=== PATIENT | female | born 1980 | race Caucasian/White ===

== ENCOUNTER → 2017-03-13 | Outpatient (CLI) | payer BC ==
--- NOTE | 2017-03-13 09:00 | NM ---
EXAMINATION TYPE: NM hepatobiliary w EF DATE OF EXAM: 03/13/2017 8:56 AM COMPARISON: NONE HISTORY: Right upper quadrant pain TECHNIQUE: After the intravenous administration of 5.48 mCi Tc 99m Mebrofenin hepatobiliary scintigra phy is performed. Immediate images post injection. FINDINGS: There is satisfactory initial accumulation of tracer by the liver. The gallbladder is visualized wit hin 15 minutes. The small bowel activity is noted within 50 minutes. At one hour 8 ounces of oral e nsure plus is given to mimic CCK and gallbladder ejection fraction is calculated at 68 %, in the norm al range. Therefore there is no scintigraphic evidence of cystic or common bile duct obstruction to suggest acute cholecystitis or gallbladder dyskinesia. IMPRESSION: 1. No abnormality identified.
== END | disposition home or self-care (01) ==
LOC: RADNMMAIN 06:41
PROVIDERS: ATTEND Family Medicine
DX: R10.11 Right upper quadrant pain (principal)
CPT/HCPCS: 78226; A9537

== ENCOUNTER → 2017-04-07 | Outpatient (CLI) | payer BC ==
--- NOTE | 2017-04-07 14:36 | US ---
EXAMINATION TYPE: US thyroid st tissue head/neck DATE OF EXAM: 04/07/2017 COMPARISON: Thyroid FNA, 03/28/2016 CLINICAL HISTORY: MTN Thyroid Nodule E04.2. F/U from FNA, pt has no complaints at this time GLAND SIZE: Right Lobe: 4.3 x 1.2 x 1.5 cm Overall Parenchyma: homogenous Left Lobe: 3.8 x 1.2 x 1.1 cm Overall Parenchyma: homogeneous Isthmus Thickness: 0.2 cm NODULES RIGHT: # of nodules measured on right: 1 1. 1.0 X 0.5 x 1.0 cm hypoechoic mixed nodule at the lower pole with well-defined margins; This no dule is wider than tall and shows intranodular vascularity. Prior size: 1.0 x 0.5 x 0.8 cm LEFT: # of nodules measured on left: 1 1. 1.2 X 0.7 x 0.6 cm hypoechoic solid nodule at the mid pole with poorly defined margins; This no dule is wider than tall and shows intranodular vascularity. Prior size: 1.2 x 0.6 x 0.6 cm ISTHMUS: # of nodules measured in the isthmus: 0 Bilateral neck scanned, no evidence of lymphadenopathy. Stable nodules bilaterally IMPRESSION: 1. Stable bilateral thyroid nodules
== END | disposition home or self-care (01) ==
LOC: RADUSWWP 13:48
PROVIDERS: ATTEND Surgery
DX: E04.2 Nontoxic multinodular goiter (principal)
CPT/HCPCS: 76536

== ENCOUNTER 2017-04-21 11:25 | Day surgery (SDC) | payer BC ==
[2017-04-18 15:01] VITALS: BMI 26.4
[~2017-04-21 11:25] MED LIST: DEXAMETHASONE SOD PHOSPHATE 10 MG/ML 1 ML VIAL IV ONE; HEPARIN SODIUM,PORCINE 5,000 UNIT/ML 1 ML VIAL SQ ONE; LACTATED RINGERS 1,000 ML IV SCH; MIDAZOLAM 2 MG/2 ML VIAL IV PRN; ONDANSETRON 4 MG/2 ML VIAL IVP ONE; SCOPOLAMINE 1.5MG/72HR PATCH TRANSDERM ONE; ceFAZolin 2 GM in SODIUM CHLORIDE 0.9% 100 ML IVPB ONE
--- NOTE | 2017-04-21 13:14 | P.GSHP ---
History of Present Illness H&P Date: 04/21/17 Chief Complaint: Right upper quadrant pain Since 36-year-old female who presents today for laparoscopic cholecystectomy. Patient had chronic complaints of right quadrant pain. The pain is worsened when eating greasy foods. Her ultrasound shows prominent folds in the cystic duct. The stomach that she is having regular quadrant pain secondary to partial cystic duct obstruction. Patient presents today for laparoscopic cholecystectomy for chronic cholecystitis. Past Medical History Past Medical History: Fibromyalgia Additional Past Medical History / Comment(s): migraines, hx kidney stones History of Any Multi-Drug Resistant Organisms: None Reported Past Surgical History: Tubal Ligation Additional Past Surgical History / Comment(s): surgery left foot, raina bunionectomy, sinus surgery, rt ulnar shortening, lithotripsy Past Anesthesia/Blood Transfusion Reactions: Postoperative Nausea & Vomiting ( PONV) Additional Past Anesthesia/Blood Transfusion Reaction / Comment(s): "BP goes real low" Smoking Status: Former smoker - Past Family History Sister(s) Family Medical History: Cancer Additional Family Medical History / Comment(s): non-Hodgkins lymphoma Medications and Allergies Home Medications Medication Instructions Recorded Confirmed Type Cyanocobalamin [Vitamin B-12 1,000 mcg SQ Q14D 04/18/17 04/21/17 History Injection] DULoxetine HCL [Cymbalta] 60 mg PO QAM 04/18/17 04/21/17 History SUMAtriptan SUCCINATE [Imitrex] 100 mg PO DIRECTED PRN 04/18/17 04/21/17 History clonazePAM [KlonoPIN] 0.5 mg PO HS 04/18/17 04/21/17 History Allergies Allergy/AdvReac Type Severity Reaction Status Date / Time codeine phosphate Allergy Swelling Verified 04/18/17 14:51 [From Tylenol-Codeine #3] Surgical - Exam Vital Signs Temp Pulse Resp BP Pulse Ox 98.3 F 68 16 113/63 98 04/21/17 12:25 04/21/17 12:25 04/21/17 12:25 04/21/17 12:25 04/21/17 12:25 - General well developed, no distress - Eyes PERRL - ENT normal pinna - Neck no masses - Respiratory normal expansion - Cardiovascular Rhythm: regular - Abdomen Abdomen: soft, non tender Assessment and Plan Plan: Chronic cholecystitis. We'll perform laparoscopic cholecystectomy.
[2017-04-21] MEDS ORDERED: KETOROLAC 30 MG/ML 1 ML VIAL ONE (13:34)
[2017-04-21] MEDS ORDERED: ROCURONIUM BROMIDE 10 MG/ML 10 ML VIAL IV ONE (13:34)
[2017-04-21] MEDS ORDERED: PROPOFOL 10 MG/ML 20 ML VIAL IV ONE (13:34)
[2017-04-21] MEDS ORDERED: MIDAZOLAM 2 MG/2 ML VIAL ONE (13:34)
[2017-04-21] MEDS ORDERED: SUCCINYLCHOLINE CHLORIDE 100 MG/5 ML SYR IV ONE (13:34)
[2017-04-21] MEDS ORDERED: GLYCOPYRROLATE 0.2 MG/ML 2 ML VIAL ONE (13:34)
[2017-04-21] MEDS ORDERED: NEOSTIGMINE 1 MG/ML 10 ML VIAL ONE (13:34)
[2017-04-21] MEDS ORDERED: LIDOCAINE 1% INJ 10MG/ML (20 ML MDV) ONE (13:34)
[2017-04-21] MEDS ORDERED: fentaNYL (PF) 50 MCG/ML 2 ML AMP ONE (13:34)
[2017-04-21] MEDS ORDERED: BUPIVACAIN-EPI 0.5%-1:200,000 30 ML VIAL SQ ONE (14:00)
[2017-04-21] MEDS ORDERED: LACTATED RINGERS 1,000 ML IV ONE (14:07)
--- NOTE | 2017-04-21 14:12 | P.OP ---
Date of Procedure: 04/21/17 Preoperative Diagnosis: Cholecystitis Postoperative Diagnosis: Cholecystitis Procedure(s) Performed: Laparoscopic cholecystectomy Implants: Anesthesia: NORMA Surgeon: Gerald Villa Estimated Blood Loss (ml): 5 Pathology: other (Gallbladder) Condition: stable Disposition: PACU Indications for Procedure: Operative Findings: Description of Procedure: The patient was placed on the operating table. The patient received a general endotracheal tube anesthesia. The patients abdomen was prepped and draped in the usual sterile fashion. Through an infraumbilical stab incision, the fascia of the anterior abdominal wall was grasped with a pair of Kochers and then the Veress needle was placed in the peritoneal cavity. Position of the Veress needle was confirmed with positive drop test. The abdomen was then insufflated. After adequate insufflation, the 10 mm trocar was placed in the peritoneal cavity. Following this the laparoscope was placed in the peritoneal cavity. The patient was placed in the head-up, right side up position and then a 5 mm trocar was placed in the right lateral and right subcostal position under direct visualization. A 8 mm trocar was placed in the epigastric position. The gallbladder was grasped in the fundus and infundibulum. Traction on the gallbladder was placed in the lateral and the cephalad positions. The triangle of Calot was visualized.. The cystic duct was bluntly dissected until the union of the cystic duct and common bile duct was seen. The cystic duct was then divided and sealed with the Harmonic scissors. A PDS Endoloop was then placed throughout the cystic duct stump. The cystic artery divided and sealed with the Harmonic scissors. The gallbladder was then removed from the liver bed using Harmonic scissors. The gallbladder was then extracted through the epigastric port site. Operative field was checked for any bleeding spots and Harmonic scissors was used to coagulate the liver bed. The abdomen was irrigated. The trocars were removed. The skin was closed using interrupted 3-0 Vicryl suture. Dermabond dressing were applied. The patient tolerated the procedure well.
[2017-04-21 14:30] VITALS: TEMP 97.1
[2017-04-21] MEDS: HYDROmorphone 1 MG/ML 1 ML SYRINGE IVP PRN ×2 (14:40→14:57)
[2017-04-21] MEDS ORDERED: ONDANSETRON 4 MG/2 ML VIAL IVP ONE (14:40)
[2017-04-21] MEDS ORDERED: PROMETHAZINE INJ 25 MG/ML 1 ML VIAL IVPB ONE (15:00)
[2017-04-21] MEDS ORDERED: METOCLOPRAMIDE 5 MG/ML 2 ML VIAL IVP ONE (15:20)
[2017-04-21 16:11] VITALS: PULSE 102
[2017-04-21 16:57] VITALS: BP 104/66; RESP 16
== END 2017-04-21 17:26 | disposition home or self-care (01) ==
LOC: OR 11:25
PROVIDERS: ATTEND Surgery
DX: K81.1 Chronic cholecystitis (principal); M79.7 Fibromyalgia; Z87.891 Personal history of nicotine dependence; Z79.899 Other long term (current) drug therapy; Z88.5 Allergy status to narcotic agent
CPT/HCPCS: 81025; 88304; 47562; J2250; J1644; J1100; J2550; J2710; J2765; J0690; J2405; J2001; J3010; J1885; J1170; J0330; J2704

== ENCOUNTER → 2018-05-23 | Outpatient (CLI) | payer BC, OTHER ==
--- NOTE | 2018-05-24 10:12 | NM ---
EXAMINATION TYPE: NM thyroid image w uptake DATE OF EXAM: 05/24/2018 COMPARISON: Ultrasound 04/07/2017 HISTORY: Thyroid nodule TECHNIQUE: Thyroid iodine uptake is calculated and images performed after the oral administration of 293 uCi 1-123 Capsule. FINDINGS: There is normal distribution of activity throughout the gland. The 4 hour iodine uptake is calculated at 13.5% (normal range 8-14%). The 24-hour iodine uptake is calculated at 32% (normal ran ge 15-35%). IMPRESSION: 1. The nodules noted by ultrasound appear to be warm nodules and should be treated as cold nodules. 2. Normal 4 and 24 hour uptake. Note is made both values are at the upper limits of normal.
== END | disposition home or self-care (01) ==
LOC: RADNMMAIN 09:35
PROVIDERS: ATTEND Family Medicine
DX: E04.2 Nontoxic multinodular goiter (principal)
CPT/HCPCS: 78014; A9516

== ENCOUNTER → 2018-11-21 | Outpatient (CLI) | payer BC, OTHER | END | disposition home or self-care (01) | LOC: RADMRIMAIN 21:21 | PROVIDERS: ATTEND Family Medicine | DX: Z53.9 Procedure and treatment not carried out, unspecified reason (principal) ==

== ENCOUNTER → 2018-11-26 | Outpatient (CLI) | payer BC, OTHER ==
--- NOTE | 2018-11-27 08:11 | MR ---
EXAMINATION TYPE: MR femur/thigh LT wo con DATE OF EXAM: 11/26/2018 COMPARISON: None HISTORY: mass anterior aspect of distal femur. Palpable abnormality. TECHNIQUE: Standard multiplanar, multisequence MRI of the left femur/thigh was performed per [facility] protocol without intravenous contrast. FINDINGS: The patient's palpable abnormality over the distal anterior and lateral left femur and marked with a vitamin E capsule prior to imaging. No suspicious MRI finding or focal mass is seen deep to this palp able abnormality. Deep to the marker as the vastus lateralis muscle and subcutaneous tissue that is u nremarkable. Inferior to this there is the lateral patellar retinaculum and a very small amount of sandra int fluid, physiologic degree. Remainder the subcutaneous tissues are grossly unremarkable. Bone carlos ow signal is also unremarkable. Small patellar osteophytes are noted. No cortical irregularity is seen within the distal femur. Parti al chondral thickness defect of medial trochlea is noted with underlying focal T2 hyperintensity. Sunshine luation of the ligaments and tendons within the knees are nondiagnostic given the [id number]. IMPRESSION: No MRI mass to correspond to the patient's bowel abnormality. Myotendinous junction of the vastus lat eralis is seen at this location as well as the lateral patellar retinaculum just inferior to this. Scotty th these structures are unremarkable.
== END | disposition home or self-care (01) ==
LOC: RADMRIMAIN 13:45
PROVIDERS: ATTEND Family Medicine
DX: R22.42 Localized swelling, mass and lump, left lower limb (principal)

== ENCOUNTER 2019-07-06 14:24 | Emergency (ER) | payer OTHER, BC ==
[2019-07-06] MEDS ORDERED: fentaNYL (PF) 50 MCG/ML 2 ML AMP IVP PRN (14:25)
[2019-07-06] MEDS ORDERED: DIPH,PERTUS(ACELL)TETVAC-LF 0.5 ML VIAL IM ONE (14:35)
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
[2019-07-06 14:59] LABS: Basophils # (A) 0.1 k/uL (0-0.2); Basophils % (A) 1 %; Eosinophils # (A) 0.2 k/uL (0-0.7); Eosinophils % (A) 2 %; HCT 42.6 % (34.0-46.0); HGB 14.5 gm/dL (11.4-16.0); Lymphocytes % (A) 17 %; MCH 30.3 pg (25.0-35.0); MCHC 33.9 g/dL (31.0-37.0); MCV 89.5 fL (80.0-100.0); Mean Platelet Volume 7.5; Monocytes # (A) 0.4 k/uL (0-1.0); Monocytes % (A) 4 %; Neutrophils # (A) 8.5 k/uL (1.3-7.7); Neutrophils % (A) 75 %; Platelet Count 373 k/uL (150-450); RBC 4.77 m/uL (3.80-5.40); RDW 12.3 % (11.5-15.5); WBC 11.4 k/uL (3.8-10.6)
[2019-07-06 15:08] LABS: INR 0.9 (<1.2)
[2019-07-06 15:09] LABS: Partial Thromboplastin Time 22.1 sec (22.0-30.0); Prothrombin Time 9.6 sec (9.0-12.0)
[2019-07-06 15:11] LABS: ALT 21 U/L (9-52); AST 30 U/L (14-36); African American GFR (CKD) >90 (>60 ml/min/1.73 sqM); Albumin 4.6 g/dL (3.5-5.0); Alcohol <10 mg/dL; Alkaline Phosphatase 65 U/L (38-126); Amylase 52 U/L (30-110); Anion Gap 10 mmol/L; Blood Urea Nitrogen 14 mg/dL (7-17); Calcium 9.7 mg/dL (8.4-10.2); Carbon Dioxide 26 mmol/L (22-30); Chloride 104 mmol/L (98-107); Glucose 97 mg/dL (74-99); Potassium 4.8 mmol/L (3.5-5.1); Sodium 140 mmol/L (137-145); Total Bilirubin 0.6 mg/dL (0.2-1.3); Total Protein 8.5 g/dL (6.3-8.2)
[2019-07-06 15:21] LABS: Creatine Kinase 274 U/L (30-135)
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
[2019-07-06 15:33] LABS: Creatine Kinase MB 1.7 ng/mL (0.0-2.4); Troponin I <0.012 ng/mL (0.000-0.034)
[2019-07-06 15:51] LABS: Appearance,Urine Clear (Clear); Bilirubin,Urine Negative (Negative); Blood,Urine Negative (Negative); Color,Urine Yellow; Glucose,Urine (UA) Negative (Negative); Ketones,Urine Negative (Negative); Leukocyte Esterase,Urine Negative (Negative); Nitrite,Urine Negative (Negative); Protein,Urine Negative (Negative); Specific Gravity,Urine 1.024 (1.001-1.035); Urobilinogen,Urine <2.0 mg/dL (<2.0)
[2019-07-06 16:02] LABS: Amphetamine Screen,Urine Not Detected (NotDetected); Barbiturate Screen,Urine Not Detected (NotDetected); Benzodiazepines Screen,Urine Not Detected (NotDetected); Cocaine Screen,Urine Not Detected (NotDetected); Methadone Screen, Urine Not Detected (NotDetected); Opiate Screen,Urine Not Detected (NotDetected); Oxycodone Screen, Urine Not Detected (NotDetected); Phencyclidine Screen,Urine Not Detected (NotDetected); Tricyclic Antidepressant,Urine Not Detected (NotDetected); Urn Cannabinoid Scrn Not Detected (NotDetected)
== END 2019-07-06 15:45 | disposition other institution (70) ==
LOC: EC 14:24
DX: R29.818 Other symptoms and signs involving the nervous system (principal); S60.419A Abrasion of unspecified finger, initial encounter; S40.212A Abrasion of left shoulder, initial encounter; S40.211A Abrasion of right shoulder, initial encounter; S30.810A Abrasion of lower back and pelvis, initial encounter; Z23 Encounter for immunization; V29.40XA Motorcycle driver injured in collision with unspecified motor vehicles in traffic accident, initial encounter; Y92.410 Unspecified street and highway as the place of occurrence of the external cause
CPT/HCPCS: 36415; 86900; 86901; 80053; 82150; 82550; 82553; 83605; 83690; 84484; 85025; 85610; 85730; 86850; 81003; 81025; 80306; 80320; 72170; 73120; 71045; 90715; 99285; 96374; 90471; J3010

== ENCOUNTER → 2019-09-25 | Outpatient (CLI) | payer OTHER ==
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
== END | disposition home or self-care (01) ==
LOC: RADMRIMAIN 20:04
PROVIDERS: ATTEND Physician Assistant
DX: M25.561 Pain in right knee (principal)

== ENCOUNTER → 2021-09-21 | Outpatient (CLI) | payer OTHER ==
--- NOTE | 2021-09-21 14:45 | CT ---
EXAMINATION TYPE: CT abdomen pelvis w con DATE OF EXAM: 09/21/2021 HISTORY: RLQ abdominal and flank pain. CT DLP: 1568mGycm Automated Exposure Control for Dose Reduction was Utilized. CONTRAST: CT scan of the abdomen and pelvis is performed with oral and with IV Contrast, patient injected with 100ml mL of Isovue 300. COMPARISON: None FINDINGS: LUNG BASES: No significant abnormality is appreciated. LIVER/GB: Visualized liver is low dense consistent with diffuse fatty infiltration. Gallbladder not s een and presumed surgically absent. PANCREAS: No significant abnormality is seen. SPLEEN: No significant abnormality is seen. ADRENALS: No significant abnormality is seen. KIDNEYS: Symmetric cortical medullary uptake and excretion without hydronephrosis seen bilaterally. BOWEL: Oral contrast reaches level of the mid right colon. Satisfactory contrast opacification of ter shilpa ileum coronal image 35 which appears within normal limits. Normal-appearing appendix is seen as cending from the low-lying cecum. No suspicious small or large bowel dilatation. Mild to moderate wall thickening in the right colon. Mild wall thickening in the poorly distended tra nsverse colon extends into the left colon. Mild wall thickening with loss of haustration in the proxi mal to mid sigmoid colon. Latter finding may suggest underlying inflammatory bowel disease. Correlate clinically. UTERUS/ADNEXA: Heterogeneous Anteverted uterus. Ovaries are symmetric and normal in size on axial sumanth ge 73. LYMPH NODES: No greater than 1cm abdominal or pelvic lymph nodes are appreciated. OSSEOUS STRUCTURES: No significant abnormality is seen. OTHER: No significant additional abnormality is seen. IMPRESSION: No CT evidence for acute appendicitis. No renal stones or hydronephrosis seen bilaterally . Cannot exclude areas of mild uncomplicated acute colitis versus product of poor distention, correla te clinically.
== END | disposition home or self-care (01) ==
LOC: RADCTMAIN 12:14
PROVIDERS: ATTEND Family Medicine
DX: R10.13 Epigastric pain (principal)
CPT/HCPCS: 74177; Q9967

== ENCOUNTER → 2022-01-19 | Outpatient (CLI) | payer MEDICARE, OTHER ==
--- NOTE | 2022-01-19 08:57 | CT ---
EXAMINATION TYPE: CT chest wo/w con DATE OF EXAM: 01/19/2022 COMPARISON: CT dated 03/07/2013 HISTORY: Chest, Rt rib, and Rt shoulder pain CT DLP: 691.20 mGycm Automated exposure control for dose reduction was used. TECHNIQUE: CT scan of the chest is performed without and with IV Contrast, patient injected with 100 mL of Isovu e 300. FINDINGS: LUNGS: The lungs are grossly clear, there is no concerning parenchymal mass or nodule identified. T here is no pleural effusion or pneumothorax seen. The tracheobronchial tree is patent. MEDIASTINUM: Slightly dilated left atrium, please correlate with echocardiographic results. No perica rdial effusion. Patent major mediastinal arteries. The pulmonary trunk measures 2.2 cm. The ascending aorta measures 3.1 cm. No pathologically enlarged lymph nodes in the chest. OTHER: Bulky liver with suspected hepatic steatosis. Tiny hypodensity seen in the left hepatic lobe measuring 5 mm, likely representing a hepatic cyst unchanged since August 2021 CT abdomen. Previous cholecystectomy. Bulky spleen. Unremarkable visualized bones. IMPRESSION: No significant pulmonary or osseous abnormality identified. Incidental findings as descr ibed above. Further bone scan assessment can be considered if clinically required.
== END | disposition home or self-care (01) ==
LOC: RADCTMAIN 07:59
PROVIDERS: ATTEND Family Medicine
DX: R07.81 Pleurodynia (principal); M25.511 Pain in right shoulder; G57.31 Lesion of lateral popliteal nerve, right lower limb
CPT/HCPCS: 71270; Q9967

== ENCOUNTER → 2022-02-11 | Outpatient (CLI) | payer MEDICARE, OTHER ==
--- NOTE | 2022-02-11 23:14 | MR ---
EXAMINATION TYPE: MR thoracic spine wo con DATE OF EXAM: 02/11/2022 COMPARISON: None HISTORY: Mid back pain, right shoulder pain and arm pain. Multiplanar multiecho imaging of the thoracic spine without contrast. The thoracic vertebrae have fairly normal alignment. No significant disc space narrowing. No compress ion fracture. There is no thoracic paraspinal mass. Thoracic spinal cord shows normal signal pattern. No edema. No spinal stenosis. The posterior elements are intact. IMPRESSION: Negative MRI scan of the thoracic spine. No fracture. No disc herniation.
== END | disposition home or self-care (01) ==
LOC: RADMRIMAIN 18:58
PROVIDERS: ATTEND Physician Assistant
DX: M54.14 Radiculopathy, thoracic region (principal)
CPT/HCPCS: 72146

== ENCOUNTER → 2022-11-02 | Outpatient (CLI) | payer MEDICARE, OTHER ==
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
== END ==
LOC: SLEEP 13:58
PROVIDERS: ATTEND Internal Medicine
DX: G47.33 Obstructive sleep apnea (adult) (pediatric) (principal); M54.50 Low back pain, unspecified; K21.9 Gastro-esophageal reflux disease without esophagitis; Z90.49 Acquired absence of other specified parts of digestive tract; Z98.890 Other specified postprocedural states; M25.559 Pain in unspecified hip; V89.2XXA Person injured in unspecified motor-vehicle accident, traffic, initial encounter; Z88.5 Allergy status to narcotic agent; Z87.891 Personal history of nicotine dependence
CPT/HCPCS: 99211

== ENCOUNTER 2023-01-19 12:45 | Inpatient (IN) | payer MEDICARE, OTHER ==
[2023-01-19] MEDS ORDERED: SODIUM CHLORIDE 0.9% 1,000 ML IV STA (14:00)
--- NOTE | 2023-01-19 14:10 | ED ---
General Adult HPI - General Chief complaint: Headache Stated complaint: Headache, neck pain Time Seen by Provider: 01/19/23 13:31 Source: patient Mode of arrival: ambulatory Limitations: no limitations - History of Present Illness Initial comments: Dictation was produced using [employer] dictation software. please excuse any grammatical, word or spelling errors. Chief Complaint: 42-year-old female presents emergency Department with 1 week of headache History of Present Illness: 42-year-old female she has past medical history of chronic pain, neuropathy and right lower extremity disorder from more cephalexin in the past patient presents to the emergency room with mother and son. She is had approximately one week of headaches. She states that the headache feels like it's in her right occipital area and radiates to the top of her head bilaterally. States that she feels to her right lower face and right upper extremity. She was seen at primary care doctor as undergone several treatment attempts with no resolved. She was seen at [facility] yesterday where a computed tomography scan was performed on any unremarkable. She was discharged. She states that she was still symptomatic at the time of discharge. Patient st ates she was given multiple medications with no results. She called her primary care doctor who instructed her to come to the ER for a stat MRI. Patient reports that her scalp feels tender. States that her pain is reproduced with palpation. States that somebody did perform a occipital nerve block with no results. States that the only thing that helps her is lying flat. She reports having a history of migraines but her migraines usually not posterior. The ROS documented in this emergency department record has been reviewed and confirmed by me. Those systems with pertinent positive or negative responses have been documented in the HPI. All other systems are other negative and/or noncontributory. PHYSICAL EXAM: General Impression: Alert and oriented x3, acute distress secondary to pain HEENT: Normocephalic atraumatic, extra-ocular movements intact, pupils equal and reactive to light bilaterally, mucous membranes moist, exquisitely tender scalp, neck is supple Cardiovascular: Heart regular rate and rhythm Chest: Able to complete full sentences, no retractions, no tachypnea Abdomen: abdomen soft, non-tender, non-distended, no organomegaly Musculoskeletal: Pulses present and equal in all extremities, no peripheral edema Motor: no focal deficits noted Neurological: CN II-XII grossly intact, no focal motor or sensory deficits noted, negative Kernig's, negative Brudzinski's, negative Lhermitte's Skin: Intact with no visualized rashes Psych: Normal affect and mood ED course: 42-year-old female presents to the emergency department for severe headache. Vital signs upon arrival are within acceptable limits. Nursing notes and chart review was performed Was pt. sent in by a medical professional or institution (, LIO, HAND TRIMMER, urgent care, hospital, or fdc...) When possible be specific @ -No Did you speak to anyone other than the patient for history (EMS, parent, family, police, friend...)? What history was obtained from this source @ -No Did you review nursing and triage notes (agree or disagree)? Why? @ -I reviewed and agree with nursing and triage notes Were old charts reviewed (outside hosp., previous admission, EMS record, old EKG, old radiological studies, urgent care reports/EKG's, fdc records)? Report findings @ -Prior brain MRIs were reviewed. Prior sleep studies reviewed Differential Diagnosis (chest pain, altered mental status, abdominal pain women, abdominal pain men, vaginal bleeding, musculoskeletal, weakness, fever, dyspnea, syncope, headache, dizziness, GI bleed, back pain, seizure, CVA, palpatations, mental health)? @ -Differential Headache: Migraine, tension, cluster, carbon monoxide, central venous thrombosis, pension karma temporal arteritis, acute closure glaucoma, intercranial hemorrhage, mastoiditis, sinusitis, head injury, this is not meant to be an all-inclusive list. EKG interpreted by me (3pts min.). @ -None done X-rays interpreted by me (1pt min.). @ -None done CT interpreted by me (1pt min.). @ -CT angio head and neck non-acute, no aneurysms U/S interpreted by me (1pt. min.). @ -None done What testing was considered but not performed or refused? (CT, X-rays, U/S, labs)? Why? @ -None What meds were considered but not given or refused? Why? @ -Headache cocktail was considered however patient has already failed multiple treatments. She did not want opiates Did you discuss the management of the patient with other professionals (professionals i.e. Dr., PA, HAND TRIMMER, lab, RT, psych nurse, social work coordinator, family court counsellor, teacher, staff command and control officer, manager of case management)? Give summary @ -Case discussed with Dr. Fry for admission Was smoking cessation discussed for >3mins.? @ -No Was critical care preformed (if so, how long)? @ -No Were there social determinants of health that impacted care today? How? (Homelessness, low income, unemployed, alcoholism, drug addiction, transportation, low edu. Level, literacy, decrease access to med. care, retirement, rehab)? @ -History of Chronic pain Was there de-escalation of care discussed even if they declined (Discuss DNR or withdrawal of care, Hospice)? DNR status @ -No What co-morbidities impacted this encounter? (DM, HTN, Smoking, COPD, CAD, Cancer, CVA, ARF, Chemo, Hep., AIDS, mental health diagnosis, sleep apnea, morbid obesity)? @ -History of neuropathy and chronic pain Was patient admitted / discharged? Hospital course, mention meds given and route, prescriptions, significant lab abnormalities, going to OR and other pertinent info. @ --42 year-old female with status migrainosus. Laboratory evaluation was obtained. CBC and metabolic panels mostly negative except for mild hypomagnesemia 1.4. Disposition options were discussed with patient and she is agreeable for admission. Case discussed with Dr. Fry for admission. Neurology will be consulted Undiagnosed new problem with uncertain prognosis? @ -No Drug Therapy requiring intensive monitoring for toxicity (Heparin, Nitro, Insulin, Cardizem)? @ -No Were any procedures done? @ -No Diagnosis/symptom? Acute, or Chronic, or Acute on Chronic? Uncomplicated (without systemic symptoms) or Complicated (systemic symptoms)? @ -1. Acute status migrainosus Side effects of treatment? @ -No Exacerbation, Progression, or Severe Exacerbation? @ -No Poses a threat to life or bodily function? How? (Chest pain, [place], [place], pneumonia, PE, COPD, DKA, ARF, appy, cholecystitis, CVA, Diverticulitis, Homicidal, Suicidal, threat to staff... and all critical care pts) @ -yes - Related Data Home Medications Medication Instructions Recorded Confirmed Baclofen [Lioresal] 20 mg PO BID PRN 01/19/23 01/19/23 DULoxetine HCL [Cymbalta] 20 mg PO DAILY 01/19/23 01/19/23 HYDROcodone/APAP 5-325MG [[place] 1 tab PO BID 01/19/23 01/19/23 5-325] Previous Rx's Medication Instructions Recorded Sennosides-Docusate Sodium 2 each PO HS tab 01/25/23 [Senokot-S] polyethylene glycoL 3350 [Miralax] 17 gm PO DAILY packet 01/25/23 Allergies Allergy/AdvReac Type Severity Reaction Status Date / Time codeine phosphate Allergy Swelling Verified 01/19/23 17:05 [From Tylenol-Codeine #3] Review of Systems ROS Statement: Those systems with pertinent positive or pertinent negative responses have been documented in the HPI. ROS Other: All systems not noted in ROS Statement are negative. Past Medical History Past Medical History: No Reported History Additional Past Medical History / Comment(s): Migraines, neuropathy, History of Any Multi-Drug Resistant Organisms: None Reported Past Surgical History: Orthopedic Surgery, Tubal Ligation Additional Past Surgical History / Comment(s): carpal tunnel surgery left foot, raina bunionectomy, sinus surgery, ulnar shortening, Past Anesthesia/Blood Transfusion Reactions: Postoperative Nausea & Vomiting (PONV) Additional Past Anesthesia/Blood Transfusion Reaction / Comment(s): no previous blood transfusion Past Psychological History: Depression Smoking Status: Former smoker Past Alcohol Use History: Occasional Past Drug Use History: None Reported - Past Family History Sister(s) Family Medical History: Cancer Additional Family Medical History / Comment(s): non-Hodgkins lymphoma General Exam Limitations: no limitations Course Vital Signs 01/19/23 01/19/23 01/19/23 12:57 14:00 14:43 Temperature 97.4 F L Pulse Rate 86 88 88 Respiratory 18 16 16 Rate Blood Pressure 131/85 130/60 133/74 O2 Sat by Pulse 96 98 98 Oximetry 01/19/23 01/19/23 01/19/23 16:00 18:00 19:00 Temperature 98.8 F Pulse Rate 68 88 88 Respiratory 16 16 16 Rate Blood Pressure 134/68 144/88 141/88 O2 Sat by Pulse 98 98 98 Oximetry 01/19/23 01/19/23 20:49 21:02 Temperature Pulse Rate 80 86 Respiratory 20 16 Rate Blood Pressure 130/80 138/68 O2 Sat by Pulse 98 98 Oximetry Medical Decision Making - Lab Data Result diagrams: 01/19/23 14:00 01/19/23 14:00 Lab Results 01/19/23 01/19/23 01/19/23 Range/Units 14:00 14:00 14:17 WBC 13.9 H (3.8-10.6) k/uL RBC 4.30 (3.80-5.40) m/uL Hgb 14.2 (11.4-16.0) gm/dL Hct 38.8 (34.0-46.0) % MCV 90.3 (80.0-100.0) fL MCH 33.1 (25.0-35.0) pg MCHC 36.7 (31.0-37.0) g/dL RDW 12.6 (11.5-15.5) % Plt Count 335 (150-450) k/uL MPV 8.5 Neutrophils % 70 % Lymphocytes % 24 % Monocytes % 4 % Eosinophils % 0 % Basophils % 0 % Neutrophils # 9.7 H (1.3-7.7) k/uL Lymphocytes # 3.3 (1.0-4.8) k/uL Monocytes # 0.5 (0-1.0) k/uL Eosinophils # 0.0 (0-0.7) k/uL Basophils # 0.1 (0-0.2) k/uL Sodium 138 (137-145) mmol/L Potassium 4.0 (3.5-5.1) mmol/L Chloride 105 (98-107) mmol/L Carbon Dioxide 22 (22-30) mmol/L Anion Gap 11 mmol/L BUN 13 (7-17) mg/dL Creatinine 0.64 (0.52-1.04) mg/dL Est GFR (CKD-EPI)AfAm >90 (>60 ml/min/1.73 sqM) Est GFR (CKD-EPI)NonAf >90 (>60 ml/min/1.73 sqM) Glucose 91 (74-99) mg/dL Calcium 9.2 (8.4-10.2) mg/dL Magnesium 1.4 L (1.6-2.3) mg/dL HCG, Qual Not Detected Disposition Clinical Impression: Status migrainosus Disposition: ADMITTED IP TO THIS HOSP
[2023-01-19] MEDS: MAGNESIUM SULFATE-D5W PMX 1 GM in DEXTROSE/WATER 1 100ML.BAG IVPB SCH ×4 (14:16→19:49)
[2023-01-19 14:32] LABS: Basophils # (A) 0.1 k/uL (0-0.2); Basophils % (A) 0 %; Eosinophils % (A) 0 %; HCT 38.8 % (34.0-46.0); HGB 14.2 gm/dL (11.4-16.0); Lymphocytes # (A) 3.3 k/uL (1.0-4.8); Lymphocytes % (A) 24 %; MCH 33.1 pg (25.0-35.0); MCHC 36.7 g/dL (31.0-37.0); MCV 90.3 fL (80.0-100.0); Mean Platelet Volume 8.5; Monocytes # (A) 0.5 k/uL (0-1.0); Monocytes % (A) 4 %; Neutrophils # (A) 9.7 k/uL (1.3-7.7); Neutrophils % (A) 70 %; Platelet Count 335 k/uL (150-450); RDW 12.6 % (11.5-15.5); WBC 13.9 k/uL (3.8-10.6)
[2023-01-19 14:49] LABS: African American GFR (CKD) >90 (>60 ml/min/1.73 sqM); Anion Gap 11 mmol/L; Blood Urea Nitrogen 13 mg/dL (7-17); Calcium 9.2 mg/dL (8.4-10.2); Carbon Dioxide 22 mmol/L (22-30); Chloride 105 mmol/L (98-107); Glucose 91 mg/dL (74-99); Magnesium 1.4 mg/dL (1.6-2.3); Non-African American GFR(CKD) >90 (>60 ml/min/1.73 sqM); Sodium 138 mmol/L (137-145)
[2023-01-19] MEDS ORDERED: NALOXONE 0.4 MG/ML 1 ML VIAL IV PRN (14:56)
--- NOTE | 2023-01-19 15:59 | CT ---
EXAMINATION TYPE: CT angio head neck DATE OF EXAM: 01/19/2023 HISTORY: Headache x10 days. COMPARISON: None CT DLP: 1542.4 mGycm. Automated Exposure Control for Dose Reduction was Utilized. TECHNIQUE: CTA scan of the neck is performed with IV Contrast, patient injected with 65ml mL of I[place] ue 370, axial images are obtained, coronal and sagittal reformatted images are reviewed. Three-D bárbara nstructed images are created on an independent workstation and reviewed. Source images are reviewed. FINDINGS: CT brain: No abnormal hyperdensity is present to suggest an acute intracranial hemorrhage. No mass lesion is evident. No acute infarcts are evident. Ventricles and sulci are appropriate for the patient age. Paranasal sinuses and mastoid air cells within the [id number] are clear. Carotid/Vascular Structures: There is a three-vessel arch. Vertebral arteries are codominant. Common carotid arteries bifurcate into internal and external carotid arteries. Internal carotid arteries are patent to the skull base. Vertebral arteries are patent to the skull base. No suspicious focal narro wing is evident at the internal carotid artery origins. No significant plaquing is evident. Cervical of [place]: Vertebral basilar system appears normal. Posterior cerebral vasculature is unrema rkable. Internal carotid arteries bifurcate normally into A1 and M1 segments. The right A1 segment is slightly hypoplastic. A2 segments are normal. The anterior communicating artery is patent. Left Post erior communicating artery is patent. Right posterior communicating artery is patent. Other: Scattered lymphadenopathy within the neck. Enlarged lymphadenopathy is not identified. Cervica l spine appears unremarkable. IMPRESSION: 1. No flow-limiting stenosis bilateral carotid bifurcations. 2. Normal [place] of [place]. 3. CT brain as visualized appears normal. Follow-up MRI can be performed as clinically indicated NASCET criteria was used in interpretation of this exam?
[2023-01-19] MEDS: HYDROmorphone 0.5 MG/0.5 ML SYRINGE IVP PRN ×2 (16:35→19:48)
[2023-01-19] MEDS: ONDANSETRON 4 MG/2 ML VIAL IVP PRN (16:36)
[2023-01-19] MEDS: ACETAMINOPHEN TAB 325 MG TAB PO PRN (16:36)
[2023-01-19] MEDS: SODIUM CHLORIDE 0.9% 1,000 ML IV SCH (16:36)
[2023-01-19] MEDS ORDERED: BACLOFEN 10 MG TAB PO PRN (20:51)
[2023-01-19] MEDS ORDERED: METOCLOPRAMIDE 5 MG/ML 2 ML VIAL IVP PRN (20:52)
[2023-01-19] MEDS: HYDROcodone/APAP 5-325MG 1 EACH TAB PO PRN (23:25)
[2023-01-20] MEDS: SODIUM CHLORIDE 0.9% 1,000 ML IV SCH ×2 (05:24→20:25)
[2023-01-20] MEDS: ACETAMINOPHEN TAB 325 MG TAB PO PRN (08:53)
[2023-01-20] MEDS: DULoxetine HCL 20 MG CAPSULE.DR PO SCH (08:54)
[2023-01-20] MEDS ORDERED: MAGNESIUM SULFATE-D5W PMX 1 GM in DEXTROSE/WATER 1 100ML.BAG IVPB ONE (09:55)
[2023-01-20] MEDS ORDERED: diphenhydrAMINE 50 MG/ML 1 ML VIAL IVP STA (09:56)
[2023-01-20] MEDS ORDERED: ACETAMINOPHEN IV (For NPO) 1,000 MG in EMPTY BAG 1 BAG IVPB STA (09:56)
[2023-01-20] MEDS: GABAPENTIN 300 MG CAP PO SCH ×3 (11:32→21:10)
[2023-01-20] MEDS: polyethylene glycoL 3350 17 GM POWD.PACK PO SCH (11:33)
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
[2023-01-20] MEDS: methocarbamoL 500 MG TAB PO SCH ×2 (13:31→20:25)
--- NOTE | 2023-01-20 13:54 | P.HPIM ---
History of Present Illness H&P Date: 01/20/23 Chief Complaint: Ongoing headache 10 days This a 42-year-old female with past medical history of migraines, neuropathy, former nicotine dependence, depression, postop nausea and vomiting, obesity and multiple other medical issues presented to the ER with unrelieved ongoing h eadache of 10 days. Denies trauma,states headache initiated last Monday upon awakening. pointing to right occipital and right frontal areas. Reports electrical stabbing sensations, worsened with sitting, standing and light. Reports accompanying nausea. Denies fever or chills States she has had m igraines for all her life and they usually subside within 1 day. Last week, followed up with her PCP, received occipital injection, Toradol, baclofen with no relief. Also reports some numbness on the right trigeminal area. CTA reported negative. Afebrile, WBC 13.9, hemoglobin 14.2, platelets 335, chemistry panel unremarkable with the exception of magnesium 1.4, hCG not detected. Denies chest pain, palpitations or shortness of breath. Maintaining O2 sats in the high 90s on room air. Neurology consult in place. Review of Systems ROS Statement: Those systems with pertinent positive or pertinent negative responses have been documented in the HPI. ROS Other: All systems not noted in ROS Statement are negative. Past Medical History Past Medical History: No Reported History Additional Past Medical History / Comment(s): Migraines, neuropathy, History of Any Multi-Drug Resistant Organisms: None Reported Past Surgical History: Orthopedic Surgery, Tubal Ligation Additional Past Surgical History / Comment(s): carpal tunnel surgery left foot, raina bunionectomy, sinus surgery, ulnar shortening, Past Anesthesia/Blood Transfusion Reactions: Postoperative Nausea & Vomiting (PONV) Additional Past Anesthesia/Blood Transfusion Reaction / Comment(s): no previous blood transfusion Past Psychological History: Depression Smoking Status: Former smoker Past Alcohol Use History: Occasional Past Drug Use History: None Reported - Past Family History Sister(s) Family Medical History: Cancer Additional Family Medical History / Comment(s): non-Hodgkins lymphoma Medications and Allergies Home Medications Medication Instructions Recorded Confirmed Type Baclofen [Lioresal] 20 mg PO BID PRN 01/19/23 01/19/23 History DULoxetine HCL [Cymbalta] 20 mg PO DAILY 01/19/23 01/19/23 History HYDROcodone/APAP 5-325MG [[place] 1 tab PO BID 01/19/23 01/19/23 History 5-325] Allergies Allergy/AdvReac Type Severity Reaction Status Date / Time codeine phosphate Allergy Swelling Verified 01/19/23 17:05 [From Tylenol-Codeine #3] Physical Exam Vitals: Vital Signs Temp Pulse Pulse Resp BP BP Pulse Ox 01/20/23 12:30 98.3 F 85 16 122/80 98 01/20/23 07:35 98.4 F 90 16 121/76 96 01/20/23 02:26 98.1 F 81 14 109/70 95 01/19/23 21:35 98.5 F 70 14 148/92 97 01/19/23 21:02 86 16 138/68 98 01/19/23 20:49 80 20 130/80 98 01/19/23 19:00 88 16 141/88 98 01/19/23 18:00 98.8 F 88 16 144/88 98 01/19/23 16:00 68 16 134/68 98 01/19/23 14:43 88 16 133/74 98 01/19/23 14:00 88 16 130/60 98 Intake and Output 01/19/23 01/20/23 01/20/23 22:59 06:59 14:59 Other: # Voids 1 1 Weight 77.111 kg PHYSICAL EXAM: VITAL SIGNS: As above GENERAL: Lying in bed, eyes closed, no acute distress HEENT: Conjunctivae normal. eyes normal. NECK: No JVD. No thyroid enlargement. No LNs CARDIOVASCULAR: S1, S2 regular. No murmur RESPIRATION: Breath sounds diminished in the bases. No rhonchi or crackles. No bronchial breathing. ABDOMEN: Soft, nontender . No guarding. no masses palpable. No ascites, No hepatosplenomegaly.Bowel sounds heard. LEGS: No edema. no swelling PSYCHIATRY: Alert and oriented X3, mood and affect normal. NERVOUS SYSTEM: Cranial N 2-12 grossly normal. No focal deficits. Strength and sensation grossly intact. Skin: warm and dry, no rash Results CBC & Chem 7: 01/19/23 14:00 01/19/23 14:00 Labs: Abnormal Lab Results - Last 24 Hours (Table) 01/19/23 01/19/23 Range/Units 14:00 14:00 WBC 13.9 H (3.8-10.6) k/uL Neutrophils # 9.7 H (1.3-7.7) k/uL Magnesium 1.4 L (1.6-2.3) mg/dL Assessment and Plan Assessment: Migraine headache 10 days over the right occipital, right frontal region, some trigeminal numbness, failed outpatient treatment,Possibly complicated migraine, possible trigeminal neuralgia. Chronic migraines Morbid obesity, BMI 32.1 Depression Former nicotine dependence Plan: Continue on current medication regime ,monitoring and symptomatic treatment. Migraine cocktail, magnesium, Tylenol and Benadryl IV ordered. Neurontin added to med regimen. Neurology consult in place, recommendations pending. The impression and plan of care has been dictated as directed. : I performed a history and examination of this patient, discussed the same with the dictator. I agree with the dictator's note ,documented as a scribe. Any additional findings or plans will be noted.
[2023-01-20] MEDS: HYDROcodone/APAP 5-325MG 1 EACH TAB PO PRN (15:55)
[2023-01-20] MEDS: SENNOSIDES-DOCUSATE SODIUM 1 EACH TAB PO SCH (20:25)
[2023-01-21] MEDS: HYDROcodone/APAP 5-325MG 1 EACH TAB PO PRN ×3 (02:57→22:16)
[2023-01-21] MEDS: methocarbamoL 500 MG TAB PO SCH ×2 (08:57→20:13)
[2023-01-21] MEDS: polyethylene glycoL 3350 17 GM POWD.PACK PO SCH (08:57)
[2023-01-21] MEDS: DULoxetine HCL 20 MG CAPSULE.DR PO SCH (08:57)
[2023-01-21] MEDS: GABAPENTIN 300 MG CAP PO SCH ×3 (08:57→22:16)
[2023-01-21] MEDS ORDERED: CAFFEINE CITRATE 60 MG/3 ML VIAL IV STA (11:18)
[2023-01-21] MEDS ORDERED: SODIUM CHLORIDE 0.9% 500 ML 500 ML IV ONE (11:19)
[2023-01-21] MEDS ORDERED: CAFFEINE-SODIUM BENZOATE 500 MG in SODIUM CHLORIDE 0.9% 1,000 ML IVPB STA (11:45)
[2023-01-21] MEDS: SODIUM CHLORIDE 0.9% 1,000 ML IV SCH ×2 (12:32→20:13)
--- NOTE | 2023-01-21 12:44 | MR ---
EXAMINATION TYPE: MR brain/cspine wo/w DATE OF EXAM: 01/21/2023 COMPARISON: CT brain March 21, 2010 HISTORY: Headache and neck pain. TECHNIQUE: Multiplanar, multisequence images of the brain and brainstem and cervical spine are performed without and with IV contrast, utilizing 7 mL intravenous Gadavist . FINDINGS: Diffusion weighted images demonstrate no evidence of a recent infarct or other diffusion ab normality. There is no extra-axial fluid collection or significant white matter signal abnormality. The ventricular system and cisternal spaces are normal in size and appearance. The brain volume is age appropriate. Midline structures demonstrate normal morphology. The craniocervical junction appears within normal limits. Post contrast images demonstrate no abnormal enhancement. The dural venous sinuses appear pa tent. The visualized sinuses are clear and the globes are intact. IMPRESSION: Unremarkable study. Cervical spine: FINDINGS: There is slight dextroconvex scoliosis centered near the upper thoracic spine on coronal im ages Sagittal images of the cervical spine show the craniocervical junction to appear within normal l imits. The cervical and upper thoracic spinal cord is normal in course, caliber, and signal. Verteb ral alignment is satisfactory. The vertebral body and intravertebral disk heights are normal. The b one marrow signal intensity is within normal limits. No abnormal postcontrast enhancement is seen. Axial images show C2-C3 and C3-C4 level to appear within normal limits. Axial images at C4-C5 level showed tiny central disc protrusion minimally effacing the anterior theca l sac. Axial images at C5-C6 level show mild broad-based posterior disc protrusion mildly facing anterior th ecal sac and causing [id number] left-sided neural foraminal narrowing. Axial images at C6-C7 and C7-T1 levels appear within normal limits. IMPRESSION: Slight scoliotic curvature with mild degenerative changes in the mid cervical spine. No a bnormal enhancement is present.
--- NOTE | 2023-01-21 13:41 | P.PN ---
Subjective Progress Note Date: 01/21/23 The patient is seen at bedside and per the nurse she continues to prefer to lie of her side and not requesting any Dilaudid or Noco. She is also feeling headache worse with standing up. Patient denies of any trauma or procedure prior to this headache. Objective - Vital Signs Vital signs: Vital Signs Temp 98.8 F 01/21/23 12:39 Pulse 76 01/21/23 12:39 Resp 18 01/21/23 12:39 BP 151/82 01/21/23 12:39 Pulse Ox 95 01/21/23 12:39 FiO2 Intake & Output 01/20/23 01/21/23 01/21/23 18:59 06:59 18:59 Intake Total 1400 Balance 1400 Intake: Intake, IV Titration 900 Amount Sodium Chloride 0.9% 1, 900 000 ml @ 75 mls/hr IV . [id number] [facility] Rx#:[id number] Oral 500 Other: Voiding Method Bedside Commode Bedside Commode # Voids 1 3 1 - Exam GENERAL: The patient is lying in bed appears in acute distress. NEUROLOGICAL: Higher mental function: The patient is awake, alert, oriented to self, place and time. Patient is following commands. No aphasia and no neglect. Cranial nerves: The pupils are round, equal and reactive to light. Visual stevens are full to confrontation throughout. Extraocular movement is intact no nystagmus is noted. Facial sensation is normal to touch throughout. The facial strength is normal throughout. Tongue is midline and moved [id number] without any difficulty. No dysarthria is noted. Shoulder shrug is normal bilaterally. Motor: Gait was attempted but patient is able to stand but feeling very off and had to be aborted. The strength is limited because of cooperation but moving all extremities above gravity except old right foot drop. Normal tone and bulk. Cerebellum: Normal finger to nose bilaterally. Sensation: Sensation is normal to touch throughout. Some other workup during his hospital visit consisted of: Magnesium is 1.4. Urine hCG is not detected CTA of the head and neck was reported as no flow-limiting stenosis bilateral carotid bifurcation. Normal [place] of [place]. CT brain as visualized appears normal. Follow-up MRI can be performed as clinically indicated. - Labs CBC & Chem 7: 01/19/23 14:00 01/19/23 14:00 Labs: Abnormal Lab Results - Last 24 Hours (Table) 01/20/23 Range/Units 14:48 Magnesium 2.6 H (1.6-2.3) mg/dL Assessment and Plan Assessment: This is a 42-year-old woman with history of migraine feels for the past 10 days she is having headache gets worse and it's over the right occipital radiating to the right frontal region. Patient states her headache is more than a 10 and has been constant. Feels the headache is different than her regular migraine. Denies any trauma. Denies any procedures prior to this event. Spontaneous CSF leak (since has positional headache) vs right occipital headache. History of Migraine Plan: I ordered MRI of the brain and cervical spine with and without urgently. MR the brain is reported as unremarkable. MRI of the cervical spine was reported as slight scoliotic curvature with mild degenerative changes in the mid cervical spine. No abnormal enhancement is present. I also ordered as CT myelogram of the cervical thoracic lumbar to rule out any CSF leak stat appears according to the nurse will not be performed the this weekend likely to be done on Monday. I gave the patient bolus of 500 mL of normal saline with one time IV caffeine. Can consider right occipital nerve block if symptoms not improved. Recommend the patient to follow-up with a neurologist as outpatient for further management for migraine. Defer the rest of the medical medical to primary team Plan discussed with the patient and her nurse. Time with Patient: Less than 30
[2023-01-21] MEDS: SENNOSIDES-DOCUSATE SODIUM 1 EACH TAB PO SCH (20:13)
[2023-01-22] MEDS: HYDROcodone/APAP 5-325MG 1 EACH TAB PO PRN (04:09)
[2023-01-22] MEDS: methocarbamoL 500 MG TAB PO SCH ×2 (08:53→22:11)
[2023-01-22] MEDS: polyethylene glycoL 3350 17 GM POWD.PACK PO SCH (08:53)
[2023-01-22] MEDS: GABAPENTIN 300 MG CAP PO SCH ×3 (08:53→22:11)
[2023-01-22] MEDS: DULoxetine HCL 20 MG CAPSULE.DR PO SCH (08:53)
[2023-01-22] MEDS: HYDROmorphone 0.5 MG/0.5 ML SYRINGE IVP PRN (09:34)
[2023-01-22] MEDS: ONDANSETRON 4 MG/2 ML VIAL IVP PRN (10:33)
[2023-01-22] MEDS: SODIUM CHLORIDE 0.9% 1,000 ML IV SCH (12:07)
--- NOTE | 2023-01-22 12:19 | P.PN ---
Subjective Progress Note Date: 01/21/23 42-year-old female with past medical history of migraines, neuropathy, former nicotine dependence, depression, postop nausea and vomiting, obesity and multiple other medical issues presented to the ER with unrelieved ongoing headache of 10 days. Denies trauma,states headache initiated last Monday upon awakening. pointing to right occipital and right frontal areas. Reports electrical stabbing sensations, worsened with sitting, standing and light. Reports accompanying nausea. Denies fever or chills States she has had migraines for all her life and they usually subside within 1 day. Last week, followed up with her PCP, received occipital injection, Toradol, baclofen with no relief. Also reports some numbness on the right trigeminal area. CTA reported negative. Afebrile, WBC 13.9, hemoglobin 14.2, platelets 335, chemistry panel unremarkable with the exception of magnesium 1.4, hCG not detec kalli. Denies chest pain, palpitations or shortness of breath. Maintaining O2 sats in the high 90s on room air. Neurology consult in place. Objective - Vital Signs Vital signs: Vital Signs Temp 98.8 F 01/21/23 12:39 Pulse 76 01/21/23 12:39 Resp 18 01/21/23 12:39 BP 151/82 01/21/23 12:39 Pulse Ox 95 01/21/23 12:39 FiO2 Intake & Output 01/20/23 01/21/23 01/21/23 18:59 06:59 18:59 Intake Total 1400 Balance 1400 Intake: Intake, IV Titration 900 Amount Sodium Chloride 0.9% 1, 900 000 ml @ 75 mls/hr IV . [id number] [facility] Rx#:[id number] Oral 500 Other: Voiding Method Bedside Commode Bedside Commode # Voids 1 3 1 - Exam GENERAL: Lying in bed, eyes closed, no acute distress HEENT: Conjunctivae normal. eyes normal. NECK: No JVD. No thyroid enlargement. No LNs CARDIOVASCULAR: S1, S2 regular. No murmur RESPIRATION: Breath sounds diminished in the bases. No rhonchi or crackles. No bronchial breathing. ABDOMEN: Soft, nontender . No guarding. no masses palpable. No ascites, No hepatosplenomegaly.Bowel sounds heard. LEGS: No edema. no swelling PSYCHIATRY: Alert and oriented X3, mood and affect normal. NERVOUS SYSTEM: Cranial N 2-12 grossly normal. No focal deficits. Strength and sensation grossly intact. Skin: warm and dry, no rash - Labs CBC & Chem 7: 01/19/23 14:00 01/19/23 14:00 Labs: Abnormal Lab Results - Last 24 Hours (Table) 01/20/23 Range/Units 14:48 Magnesium 2.6 H (1.6-2.3) mg/dL Assessment and Plan Assessment: Migraine headache 10 days over the right occipital, right frontal region, some trigeminal numbness, failed outpatient treatment,Possibly complicated migraine, possible trigeminal neuralgia. Chronic migraines Morbid obesity, BMI 32.1 Depression Former nicotine dependence Plan: Continue on current medication regime ,monitoring and symptomatic treatment. Migraine cocktail, magnesium, Tylenol and Benadryl IV ordered. Ne urontin added to med regimen. Neurology consult in place, recommendations pending.
[2023-01-22] MEDS ORDERED: SODIUM CHLORIDE 0.9% 500 ML 500 ML IV ONE (14:28)
--- NOTE | 2023-01-22 14:30 | P.PN ---
Subjective Progress Note Date: 01/22/23 The patient is seen at bedside and does not feel her headache has improved. Objective - Vital Signs Vital signs: Vital Signs Temp 97.9 F 01/22/23 11:13 Pulse 69 01/22/23 11:13 Resp 18 01/22/23 11:13 BP 130/75 01/22/23 11:13 Pulse Ox 93 L 01/22/23 11:13 FiO2 Intake & Output 01/21/23 01/22/23 01/22/23 18:59 06:59 18:59 Intake Total 1500 900 Balance 1500 900 Intake: Intake, IV Titration 1500 900 Amount Caffeine-Sodium Benzoate 1000 500 mg In Sodium Chloride 0.9% 1,000 ml @ 1002 mls /hr IVPB ONCE STA Rx#: [id number] Sodium Chloride 0.9% 1, 900 000 ml @ 75 mls/hr IV . [id number] [facility] Rx#:[id number] Sodium Chloride 0.9% 500 500 ml 500 ml @ 999 mls/hr IV .Q31M ONE Rx#:[id number] Other: Voiding Method Bedside Commode Bedside Commode # Voids 5 1 1 - Exam GENERAL: The patient is lying in bed appears in acute distress. Sitting on left side of bed. NEUROLOGICAL: Higher mental function: The patient is awake, alert, oriented to self, place and time. Patient is following commands. No aphasia and no neglect. Cranial nerves: The pupils are round, equal and reactive to light. Visual stevens are full to confrontation throughout. Extraocular movement is intact no nystagmus is noted. Facial sensation is normal to touch throughout. The facial strength is normal throughout. Tongue is midline and moved [id number] without any difficulty. No dysarthria is noted. Shoulder shrug is normal bilaterally. Motor: Gait was attempted but patient is able to stand but feeling very off and had to be aborted. The strength is limited because of cooperation but moving all extremities above gravity except old right foot drop. Normal tone and bulk. Cerebellum: Normal finger to nose bilaterally. Sensation: Sensation is normal to touch throughout. Some other workup during his hospital visit consisted of: Magnesium is 1.4. Urine hCG is not detected CTA of the head and neck was reported as no flow-limiting stenosis bilateral carotid bifurcation. Normal [place]. CT brain as visualized appears normal. Follow-up MRI can be performed as clinically indicated. MRI the brain is reported as unremarkable. MRI of the cervical spine was reported as slight scoliotic curvature with mild degenerative changes in the mid cervical spine. No abnormal enhancement is present. - Labs CBC & Chem 7: 01/19/23 14:00 01/19/23 14:00 Assessment and Plan Assessment: This is a 42-year-old woman with history of migraine feels for the past 10 days she is having headache gets worse and it's over the right occipital radiating to the right frontal region. Patient states her headache is more than a 10 and has been constant. Feels the headache is different than her regular migraine. Denies any trauma. Denies any procedures prior to this event. Cephalgia due to possible Spontaneous CSF leak (since has positional headache) vs right occipital headache. MRI Brain and C-spine was not remarkable to her symptoms History of Migraine Plan: Pending CT myelogram of the cervical thoracic lumbar to rule out any CSF leak stat appears according to the nurse will not be performed the this weekend likely to be done on Monday. Ordered ESR and CRP. I will give her another dose of IV Caffeine and another bolus of IV 0.9 saline 500cc. Patient is on Dilaudid PRN. Is on Gababentin 300mg 1 tab tid, Robaxin. Can consider right occipital nerve block if symptoms not improved. Recommend the patient to follow-up with a neurologist as outpatient for further management for migraine. Defer the rest of the medical medical to primary team Plan discussed with the patient and her nurse. Dr. Peña will start neurology service tomorrow A.M. Time with Patient: Less than 30
[2023-01-22] MEDS ORDERED: CAFFEINE-SODIUM BENZOATE 500 MG in SODIUM CHLORIDE 0.9% 1,000 ML IVPB ONE (15:00)
--- NOTE | 2023-01-22 17:09 | P.PN ---
Subjective Progress Note Date: 01/22/23 Principal diagnosis: Cephalgia due to possible Spontaneous CSF leak (since has positional headache) vs right occipital headache. 42-year-old female with past medical history of migraines, neuropathy, former nicotine dependence, depression, postop nausea and vomiting, obesity and multiple other medical issues presented to the ER with unrelieved ongoing headache of 10 days. Denies trauma,states headache initiated last Monday upon awakening. pointing to right occipital and right frontal areas. Reports electrical stabbing sensations, worsened with sitting, standing and light. Reports accompanying nausea. Denies fever or chills States she has had migraines for all her life and they usually subside within 1 day. Last week, followed up with her PCP, received occipital injection, Toradol, baclofen with no relief. Also reports some numbness on the right trigeminal area. CTA reported negative. Afebrile, WBC 13.9, hemoglobin 14.2, platelets 335, chemistry panel unremarkable with the exception of magnesium 1.4, hCG not detected. Denies chest pain, palpitations or shortness of breath. Maintaining O2 sats in the high 90s on room air. Neurology consult in place. 01/22/2023 Patient is seen and evaluated in room with family at bedside; continues to complain of headache --Neurology on board and recommending IV caffeine and IV fluid bolus with normal saline 500 mL; patient will continue with IV Dilaudid when necessary along with Neurontin 300 mg 3 times a day; continue with Robaxin - CT myelogram of cervical, thoracic and lumbar spine is ordered and pending - Possible plan for occipital nerve block if no improvement in symptoms Objective - Vital Signs Vital signs: Vital Signs Temp 97.9 F 01/22/23 11:13 Pulse 69 01/22/23 11:13 Resp 18 01/22/23 11:13 BP 130/75 01/22/23 11:13 Pulse Ox 93 L 01/22/23 11:13 FiO2 Intake & Output 01/21/23 01/22/23 01/22/23 18:59 06:59 18:59 Intake Total 1500 900 Balance 1500 900 Intake: Intake, IV Titration 1500 900 Amount Caffeine-Sodium Benzoate 1000 500 mg In Sodium Chloride 0.9% 1,000 ml @ 1002 mls /hr IVPB ONCE STA Rx#: [id number] Sodium Chloride 0.9% 1, 900 000 ml @ 75 mls/hr IV . [id number] [facility] Rx#:[id number] Sodium Chloride 0.9% 500 500 ml 500 ml @ 999 mls/hr IV .Q31M ONE Rx#:[id number] Other: Voiding Method Bedside Commode Bedside Commode # Voids 5 1 1 - Exam GENERAL: Lying in bed, eyes closed, no acute distress HEENT: Conjunctivae normal. eyes normal. NECK: No JVD. No thyroid enlargement. No LNs CARDIOVASCULAR: S1, S2 regular. No murmur RESPIRATION: Breath sounds diminished in the bases. No rhonchi or crackles. No bronchial breathing. ABDOMEN: Soft, nontender . No guarding. no masses palpable. No ascites, No hepatosplenomegaly.Bowel sounds heard. LEGS: No edema. no swelling PSYCHIATRY: Alert and oriented X3, mood and affect normal. NERVOUS SYSTEM: Cranial N 2-12 grossly normal. No focal deficits. Strength and sensation grossly intact. Skin: warm and dry, no rash - Labs CBC & Chem 7: 01/19/23 14:00 01/19/23 14:00 Assessment and Plan Assessment: Migraine headache 10 days over the right occipital, right frontal region, some trigeminal numbness, failed outpatient treatment,Possibly complicated migraine, possible trigeminal neuralgia. Chronic migraines Morbid obesity, BMI 32.1 Depression Former nicotine dependence Plan: Continue on current medication regime ,monitoring and symptomatic t reatment. Migraine cocktail, magnesium, Tylenol and Benadryl IV ordered. Neurontin added to med regimen. Neurology consult in place, recommendations pending.
[2023-01-22] MEDS: SENNOSIDES-DOCUSATE SODIUM 1 EACH TAB PO SCH (22:11)
[2023-01-23] MEDS: SODIUM CHLORIDE 0.9% 1,000 ML IV SCH ×2 (03:20→23:56)
[2023-01-23] MEDS: HYDROcodone/APAP 5-325MG 1 EACH TAB PO PRN (04:27)
[2023-01-23] MEDS: methocarbamoL 500 MG TAB PO SCH ×2 (09:10→21:09)
[2023-01-23] MEDS: GABAPENTIN 300 MG CAP PO SCH ×3 (09:10→21:09)
[2023-01-23] MEDS: polyethylene glycoL 3350 17 GM POWD.PACK PO SCH (09:10)
[2023-01-23] MEDS: DULoxetine HCL 20 MG CAPSULE.DR PO SCH (09:10)
--- NOTE | 2023-01-23 14:14 | P.PN ---
Subjective Progress Note Date: 01/23/23 Chief Complaint: Ongoing headache 10 days This a 42-year-old female with past medical history of migraines, neuropathy, former nicotine dependence, depression, postop nausea and vomiting, obesity and multiple other medical issues presented to the ER with unrelieved ongoing headache of 10 days. Denies trauma,states headache initiated last Monday upon awakening. pointing to right occipital and right frontal areas. Reports electrical stabbing sensations, worsened with sitting, standing and light. Reports accompanying nausea. Denies fever or chills States she has had migrain es for all her life and they usually subside within 1 day. Last week, followed up with her PCP, received occipital injection, Toradol, baclofen with no relief. Also reports some numbness on the right trigeminal area. CTA reported negative. Afebrile, WBC 13.9, hemoglobin 14.2, platelets 335, chemistry panel unremarkable with the exception of magnesium 1.4, hCG not detected. Denies chest pain, palpitations or shortness of breath. Maintaining O2 sats in the high 90s on room air. Neurology consult in place. 01/23/2023 continues on Dilaudid PRN, Neurontin and Robaxin . Received IV caffeine, additional IV fluids with reported minimal improvement yesterday. Denies numbness or tingling. Positive facial sensation to touch. States pain is ongoing at the "top of her neck and to the right side top of head". Neuro workup currently reporting unremarkable;MRI the brain is reported as unremar kable. MRI of the cervical spine was reported as slight scoliotic curvature with mild degenerative changes in the mid cervical spine. No abnormal enhancement is present. ESR 12 ,C-reactive protein less than 0.5. CT myelogram of the cervical thoracic lumbar, ruling out CSF leak pending. Objective - Vital Signs Vital signs: Vital Signs Temp 97.8 F 01/23/23 06:48 Pulse 74 01/23/23 06:48 Resp 16 01/23/23 06:48 BP 112/75 01/23/23 06:48 Pulse Ox 97 01/23/23 06:48 FiO2 Intake & Output 01/22/23 01/23/23 01/23/23 18:59 06:59 18:59 Intake Total 1500 Output Total 0 Balance 1500 0 Intake: Intake, IV Titration 1500 Amount Caffeine-Sodium Benzoate 1000 500 mg In Sodium Chloride 0.9% 1,000 ml @ 1002 mls /hr IVPB ONCE ONE Rx#: [id number] Sodium Chloride 0.9% 500 500 ml 500 ml @ 999 mls/hr IV .Q31M ONE Rx#:[id number] Output: Stool 0 Other: Voiding Method Bedside Commode Bedside Commode # Voids 1 1 - Exam PHYSICAL EXAM: VITAL SIGNS: As above GENERAL: Lying in bed, eyes closed, no acute distress. Conversing fluently and appropriately. HEENT: Conjunctivae normal. eyes normal. NECK: Supple, No JVD. CARDIOVASCULAR: S1, S2 regular. No murmur RESPIRATION: Breath sounds diminished in the bases. No rhonchi or crackles. No bronchial breathing. ABDOMEN: Soft, nontender . No guarding. no masses palpable. +Bowel sounds. LEGS: No edema. no swelling PSYCHIATRY: Alert and oriented X3, mood and affect normal. NERVOUS SYSTEM: Cranial N 2-12 grossly normal. Skin: warm and dry, no rash - Labs CBC & Chem 7: 01/19/23 14:00 01/19/23 14:00 Assessment and Plan Assessment: Migraine headache 10 days over the right occipital, right frontal region, some trigeminal numbness, failed outpatient treatment,Possibly complicated migraine, possible trigeminal neuralgia. Ruling out spontaneous CSF leak. Chronic migraines Morbid obesity, BMI 32.1 Depression Former nicotine dependence Plan: Continue on current medication regime ,monitoring and symptomatic t reatment. CT myelogram of the cervical thoracic lumbar pending. Neurology discussing possible right occipital nerve block. The impression and plan of care has been dictated as directed. : I performed a history and examination of this patient, discussed the same with the dictator. I agree with the dictator's note ,documented as a scribe. Any additional findings or plans will be noted.
--- NOTE | 2023-01-23 16:24 | FL ---
EXAMINATION TYPE: FL myelogram 2 or more regions DATE OF EXAM: 01/23/2023 COMPARISON: NONE HISTORY: 42-year-old female persistent postural headache, assess for CSF leak Informed consent was obtained and all the patient's questions were answered. The L3-L4 level was loc alized under fluoroscopy. Standard sterile technique was utilized as well as appropriate local anest hesia 1% Lidocaine. A 22-gauge 5 inch spinal needle was introduced into the thecal sac under fluorosc opic guidance . Clear CSF was visualized at the needle hub. Approximately 6.5 mL of clear, colorless cerebral spinal fluid was obtained and sent for requested l aboratory analysis. Subsequently, 10 mL's of Isovue M-300 was injected. The patient tolerated the procedure well and lef t the department in stable condition. The table was manipulated to promote cephalad passage of contrast. CT myelography is to follow. The patient tolerated the procedure well and was sent for CT and satisfactory condition. The estimated blood loss was minimal. The patient's condition was unchanged following the procedure. Total fluoroscopy time: 66 seconds. Total images: 7. Total DAP: 3.0. IMPRESSION: Successful myelography at the lumbar spine level for entire spine CT to follow.
--- NOTE | 2023-01-23 16:35 | CT ---
EXAMINATION TYPE: CT CervThorLumbar spine w con DATE OF EXAM: 01/23/2023 COMPARISON: None HISTORY: 42-year-old female with persistent headache, assess for CSF leak, Post myelogram TECHNIQUE: Contiguous axial scanning of the cervical, thoracic, and lumbar spine performed with IV Co ntrast, patient injected with 10cc mL of Isovue M300 into the intrathecal space coronal/sagittal bárbara nstructions performed. CT DLP: 1778 mGycm Automated exposure control for dose reduction was used. FINDINGS: INCIDENTAL: * Asymmetric soft tissue along the right palatine tonsils and right vallecular space probably some t onsillar hypertrophy. Consider for the patient for direct inspection to exclude mucosal lesion here. * Prominent strandy atelectasis or scarring in the visualized mid to lower lungs. Heart borderline i n size without pericardial effusion. * Small hiatal hernia. * Underlying hepatic steatosis. Hepatomegaly at 20.6 cm. Within the spine, Vertebral body heights are preserved and alignment is maintained. No large focal disc herniation or spinal canal stenosis is seen. No significant neural foraminal sten osis. Conus medullaris is at the T12-L1 level. No significant neuroforaminal stenosis is identified. There is some inadvertent spillage of the intrathecal contrast into the basal cisterns. There is no abnormal extension of contrast either side along the length of the thecal sac to indicate a dural tear/CSF leak by CT myelogram. No prevertebral paravertebral soft tissue abnormality or abnormal fluid collection is identified. IMPRESSION: NO DIAGNOSTIC EVIDENCE OF CSF LEAK BY CT MYELOGRAM. INCIDENTAL FINDINGS OUTLINED ABOVE.
[2023-01-23 18:23] LABS: Glucose,CSF 59 mg/dL (40-70); Total Protein,CSF 33 mg/dL (12-60)
[2023-01-23 19:39] LABS: Appearance,CSF Clear; CSF Tube Number 3; CSF Tube Volume 2.5; Nucleated Cells, CSF 0 u/L (0-5); Red Blood Cell,CSF 35 u/L (0-10)
[2023-01-23 19:42] LABS: Red Blood Cell, CSF Fresh 100 %
[2023-01-23] MEDS: SENNOSIDES-DOCUSATE SODIUM 1 EACH TAB PO SCH (21:09)
[2023-01-24] MEDS: SODIUM CHLORIDE 0.9% 1,000 ML IV SCH ×2 (03:13→15:45)
[2023-01-24] MEDS: HYDROcodone/APAP 5-325MG 1 EACH TAB PO PRN ×2 (04:06→15:44)
--- NOTE | 2023-01-24 09:45 | P.PN ---
Subjective Progress Note Date: 01/23/23 Patient was initially seen by Dr. Arcadio Pierce. Please refer to his consultation note, impression and plan. Patient is a 42-year-old female with headache, but different than migraine and felt left occipital but worse standing up. Dr. Pierce was concerned about CSF leak versus occipital neuralgia. He did recommend CT myelogram. Also patient was given caffeine. Today's the first day I'm seeing the patient. Patient already had undergone CT myelogram earlier today as recommended by Dr. Pierce, which was negative for any CSF leak. Patient was seen for a follow-up. Patient is laying in the bed, with a washcloth on her forehead. Patient's was also present. Patient states her headache is greater than 10/10 at this time. It appears like ice cream headache like the brain freeze in her head. When she lays on her back, it is worse. Objective - Vital Signs Vital signs: Vital Signs Temp 98.0 F 01/23/23 16:05 Pulse 87 01/23/23 17:52 Resp 16 01/23/23 16:05 BP 123/88 01/23/23 17:52 Pulse Ox 97 01/23/23 17:52 FiO2 Intake & Output 01/23/23 01/23/23 01/24/23 06:59 18:59 06:59 Intake Total 750 Output Total 0 1 Balance 0 749 Intake: Intake, IV Titration 750 Amount Sodium Chloride 0.9% 1, 750 000 ml @ 75 mls/hr IV . [id number] [facility] Rx#:[id number] Output: Stool 0 1 Other: Voiding Method Bedside Commode Bedside Commode # Voids 1 1 - Exam Patient complaining of significant headache, otherwise detailed examination deferred. Mentation appears normal. - Labs CBC & Chem 7: 01/19/23 14:00 01/19/23 14:00 Labs: Abnormal Lab Results - Last 24 Hours (Table) 01/23/23 Range/Units 14:45 CSF RBC 35 H (0-10) u/L Assessment and Plan Assessment: This is a 42-year-old woman with history of migraine feels for the past 10 days she is having headache gets worse and it's over the right occipital radiating to the right frontal region. Patient states her headache is more than a 10 and has been constant. Feels the headache is different than her regular migraine. Denies any trauma. Denies any procedures prior to this event. Cephalgia: Dr. Pierce has felt it was possible Spontaneous CSF leak (since has positional headache) vs right occipital headache. MRI Brain and C-spine was not remarkable to her symptoms. CSF leak ruled out with CT myelogram. No evidence of meningitis. History of Migraine Plan: Patient underwent CT myelogram today. Opening pressure was not checked. CT myelogram negative for any CSF leak. CSF shows 0 nucleated cells, 35 RBC, glucose 59, total proteins 33, all normal. Meningitis ruled out. Await MS panel and viral cultures. ESR 12, CRP <0.5. CTA of the head and neck was reported as no flow-limiting stenosis bilateral carotid bifurcation. Normal [place]. MRI the brain is reported as unremarkable. I personally reviewed MRI, and is normal. No evidence of Chiari malformation. No abnormal contrast enhancement. Visualized paranasal sinuses are clear. MRI of the cervical spine was reported as slight scoliotic curvature with mild degenerative changes in the mid cervical spine. No abnormal enhancement is present. I personally reviewed MRI, agree with the findings. We will observe overnight, if no improvement, will consider occipital nerve block.
[2023-01-24] MEDS ORDERED: ACETAMINOPHEN IV (For NPO) 1,000 MG in EMPTY BAG 1 BAG IVPB STA (09:59)
[2023-01-24] MEDS ORDERED: METOCLOPRAMIDE 5 MG/ML 2 ML VIAL IVP STA (10:00)
[2023-01-24] MEDS ORDERED: LORazepam 2 MG/ML INJ IV STA (10:00)
[2023-01-24] MEDS ORDERED: MAGNESIUM SULFATE-D5W PMX 1 GM in DEXTROSE/WATER 1 100ML.BAG IVPB ONE (10:30)
[2023-01-24] MEDS: GABAPENTIN 300 MG CAP PO SCH (12:05)
[2023-01-24] MEDS: methocarbamoL 500 MG TAB PO SCH ×2 (12:05→21:04)
[2023-01-24] MEDS: DULoxetine HCL 20 MG CAPSULE.DR PO SCH (12:05)
[2023-01-24] MEDS: polyethylene glycoL 3350 17 GM POWD.PACK PO SCH (12:05)
[2023-01-24 12:16] LABS: IgG - CSF 2.4 mg/dL (0.0 - 3.4)
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
[2023-01-24] MEDS ORDERED: methylPREDNISolone ACETATE 80 MG/ML 1 ML VIAL ONE (13:37)
[2023-01-24] MEDS ORDERED: ROPIVACAINE 5 MG/ML 20 ML AMPULE ONE (13:37)
--- NOTE | 2023-01-24 13:47 | P.PCN ---
Date of Procedure: 01/24/23 Procedure(s) Performed: Preoperative diagnoses= 1- Right Greater occipital neuralgia. 2-myofascial pain syndrome right-sided cervical paraspinal muscles Postoperative diagnoses= 1- Right greater occipital neuralgia. 2-myofascial pain syndrome right-sided cervical paraspinal muscles Procedure= Right Greater occipital nerve block. 2-trigger point injection right side cervical paraspinal muscles total of 4 trigger point injected Anesthesia=none . Estimated blood loss=minimal. Procedure indication= the patient had a history of severe chronic neck pain ,and headache, diagnosed with occipital neuralgia exam was positive for severe tenderness over the occipital nerve on the right side , and also examination was positive for multiple trigger point identified on the right side cervical paraspinal muscles she will be a good candidate occipital nerve block, andger points injections and trigpatient failed conservative management Procedure description= the patient was seen and identified in the preoperative holding area, risks and benefits and alternative of the procedure and possible complications discussed with the patient, and he agreed with the preceding, patient signed the consent, an IV was started, and vital signs were monitored and were stable throughout the procedure, patient was placed in the sitting position or table and the neck area was prepped and draped with a sterile fashion, vital signs were closely monitored during the procedure, 25-gauge needle advanced 1 inch lateral to the occipital protuberance on the right side, at the location of the right occipital nerve , then after negative aspiration for heme and CSF and there was no paresthesia during the injection, 6 ml of Robivacaine 0.5% and 40 mg of Depo-Medrol injected after negative aspiration, the needle removed. Then after that the right side cervical paraspinal muscle trigger point injections done in a similar technique each of the trigger point injected with mixture of ropivacaine 0.5% at the medial mixed with 40 mg of Depo-Medrol, a total ML of the mixture was injected into each trigger point using 25-gauge needle, injections done after negative aspiration under was no paresthesia during the injection, a total of 4 trigger point injected on the right side cervical paraspinal muscles patient tolerated the procedure well without any complications The patient returned to supine position after the back was cleaned and a Band- Aid applied, the patient transported to recovery room in stable condition and he was monitored for 30 minutes before he was discharged home and then patient was reexamined before going home and patient was discharged in stable condition and patient will follow up with the pain clinic in a few weeks.
--- NOTE | 2023-01-24 14:25 | P.PN ---
Subjective Progress Note Date: 01/24/23 Chief Complaint: Ongoing headache 10 days This a 42-year-old female with past medical history of migraines, neuropathy, former nicotine dependence, depression, postop nausea and vomiting, obesity and multiple other medical issues presented to the ER with unrelieved ongoing headache of 10 days. Denies trauma,states headache initiated last Monday upon awakening. pointing to right occipital and right frontal areas. Reports electrical stabbing sensations, worsened with sitting, standing and light. Reports accompanying nausea. Denies fever or chills States she has had migrain es for all her life and they usually subside within 1 day. Last week, followed up with her PCP, received occipital injection, Toradol, baclofen with no relief. Also reports some numbness on the right trigeminal area. CTA reported negative. Afebrile, WBC 13.9, hemoglobin 14.2, platelets 335, chemistry panel unremarkable with the exception of magnesium 1.4, hCG not detected. Denies chest pain, palpitations or shortness of breath. Maintaining O2 sats in the high 90s on room air. Neurology consult in place. 01/23/2023 continues on Dilaudid PRN, Neurontin and Robaxin . Received IV caffeine, additional IV fluids with reported minimal improvement yesterday. Denies numbness or tingling. Positive facial sensation to touch. States pain is ongoing at the "top of her neck and to the right side top of head". Neuro workup currently reporting unremarkable;MRI the brain is reported as unremar kable. MRI of the cervical spine was reported as slight scoliotic curvature with mild degenerative changes in the mid cervical spine. No abnormal enhancement is present. ESR 12 ,C-reactive protein less than 0.5. CT myelogram of the cervical thoracic lumbar, ruling out CSF leak pending. 01/24/2023 reports headache unchanged, rating it 10 out of 10. currently sitting up on bedside commode with eyes closed. Reports nausea, no emesis and states she can open her eyes, but the light is bothersome. CT myelogram reported negative for CSF leak. Neurology expressing concern for possible occipital neuralgia, pain management service consulted. Objective - Vital Signs Vital signs: Vital Signs Temp 97.9 F 01/24/23 13:32 Pulse 90 01/24/23 13:32 Resp 15 01/24/23 13:32 BP 113/78 01/24/23 13:32 Pulse Ox 96 01/24/23 13:32 FiO2 Intake & Output 01/23/23 01/24/23 01/24/23 18:59 06:59 18:59 Intake Total 750 900 Output Total 1 1 Balance 749 899 Intake: Intake, IV Titration 750 900 Amount Sodium Chloride 0.9% 1, 750 900 000 ml @ 75 mls/hr IV . [id number] [facility] Rx#:[id number] Output: Stool 1 1 Other: Voiding Method Bedside Commode Bedside Commode Bedside Commode # Voids 1 1 - Exam PHYSICAL EXAM: VITAL SIGNS: As above GENERAL: Alert and oriented 3, Sitting up on bedside commode, head hung down with chin down towards chest, eyes closed, no acute distress. Conversing fluently/appropriately. HEENT: Conjunctivae normal. eyes normal. NECK: Supple, No JVD. CARDIOVASCULAR: S1, S2 regular. No murmur RESPIRATION: Unlabored ,Breath sounds diminished in the bases. ABDOMEN: Soft, nontender . No guarding. no masses palpable. +Bowel sounds. LEGS: No edema. no swelling NERVOUS SYSTEM: Cranial N 2-12 grossly normal. Skin: warm and dry, no rash. - Labs CBC & Chem 7: 01/19/23 14:00 01/19/23 14:00 Labs: Abnormal Lab Results - Last 24 Hours (Table) 01/23/23 Range/Units 14:45 CSF RBC 35 H (0-10) u/L Microbiology - Last 24 Hours (Table) 01/23/23 14:45 CSF Gram Stain - Preliminary Cerebral Spinal Fluid CSF Culture - Preliminary Assessment and Plan Assessment: Migraine headache 10 days over the right occipital, right frontal region, some trigeminal numbness, failed outpatient treatment,Possibly complicated migraine, possible trigeminal neuralgia. Possible occipital neuralgia. Chronic migraines Morbid obesity, BMI 32.1 Depression Former nicotine dependence Plan: Continue on current medication regime ,monitoring and symptomatic treatment. Migraine cocktail. Neurology discussing possible occipital neuralgia- right occipital nerve block, pain management services consulted. Discharge planning in progress for tomorrow pending final DC recommendations and clearance per neurology, pain management. The impression and plan of care has been dictated as directed. : I performed a history and examination of this patient, discussed the same with the dictator. I agree with the dictator's note ,documented as a scribe. Any additional findings or plans will be noted.
[2023-01-24] MEDS: GABAPENTIN 400 MG CAP PO SCH ×2 (15:44→21:04)
[2023-01-24] MEDS: SENNOSIDES-DOCUSATE SODIUM 1 EACH TAB PO SCH (21:04)
[2023-01-25] MEDS: SODIUM CHLORIDE 0.9% 1,000 ML IV SCH ×2 (04:59→19:52)
[2023-01-25] MEDS: HYDROcodone/APAP 5-325MG 1 EACH TAB PO PRN (06:55)
[2023-01-25 07:48] VITALS: RESP 16
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
[2023-01-25] MEDS: polyethylene glycoL 3350 17 GM POWD.PACK PO SCH (10:54)
[2023-01-25] MEDS: GABAPENTIN 400 MG CAP PO SCH ×3 (10:54→21:02)
[2023-01-25] MEDS: methocarbamoL 500 MG TAB PO SCH ×2 (10:54→21:02)
[2023-01-25] MEDS: DULoxetine HCL 20 MG CAPSULE.DR PO SCH (10:54)
[2023-01-25] MEDS: BUTALB/APAP/CAFF 50-325-40MG TAB PO PRN ×2 (15:01→21:02)
--- NOTE | 2023-01-25 15:46 | P.PN ---
Subjective Progress Note Date: 01/25/23 Chief Complaint: Ongoing headache 10 days This a 42-year-old female with past medical history of migraines, neuropathy, former nicotine dependence, depression, postop nausea and vomiting, obesity and multiple other medical issues presented to the ER with unrelieved ongoing headache of 10 days. Denies trauma,states headache initiated last Monday upon awakening. pointing to right occipital and right frontal areas. Reports electrical stabbing sensations, worsened with sitting, standing and light. Reports accompanying nausea. Denies fever or chills States she has had migrain es for all her life and they usually subside within 1 day. Last week, followed up with her PCP, received occipital injection, Toradol, baclofen with no relief. Also reports some numbness on the right trigeminal area. CTA reported negative. Afebrile, WBC 13.9, hemoglobin 14.2, platelets 335, chemistry panel unremarkable with the exception of magnesium 1.4, hCG not detected. Denies chest pain, palpitations or shortness of breath. Maintaining O2 sats in the high 90s on room air. Neurology consult in place. 01/23/2023 continues on Dilaudid PRN, Neurontin and Robaxin . Received IV caffeine, additional IV fluids with reported minimal improvement yesterday. Denies numbness or tingling. Positive facial sensation to touch. States pain is ongoing at the "top of her neck and to the right side top of head". Neuro workup currently reporting unremarkable;MRI the brain is reported as unremar kable. MRI of the cervical spine was reported as slight scoliotic curvature with mild degenerative changes in the mid cervical spine. No abnormal enhancement is present. ESR 12 ,C-reactive protein less than 0.5. CT myelogram of the cervical thoracic lumbar, ruling out CSF leak pending. 01/24/2023 reports headache unchanged, rating it 10 out of 10. currently sitting up on bedside commode with eyes closed. Reports nausea, no emesis and states she can open her eyes, but the light is bothersome. CT myelogram reported negative for CSF leak. Neurology expressing concern for possible occipital neuralgia, pain management service consulted. 01/25/2023 evaluated by pain management services yesterday, right greater occipital nerve block. Reports some improvement in the occipital area but continues to have significant unchanged pain at the top of the head. Right bicipital tenderness to palpation-cannot lay on her back/right side. Reports that she can barely sit or stand as it intensifies the pain in addition to causing dizziness. Positive nausea, no emesis. Discussed with neurology, possible CSF leak from myelogram; recommending epidural blood patch. Objective - Vital Signs Vital signs: Vital Signs Temp 98.6 F 01/25/23 14:00 Pulse 75 01/25/23 14:00 Resp 16 01/25/23 14:00 BP 100/67 01/25/23 14:00 Pulse Ox 96 01/25/23 14:00 FiO2 Intake & Output 01/24/23 01/25/23 01/25/23 18:59 06:59 18:59 Intake Total 1490 1000 Output Total 1 Balance 1490 999 Intake: Intake, IV Titration 900 1000 Amount Sodium Chloride 0.9% 1, 900 1000 000 ml @ 75 mls/hr IV . [id number] [facility] Rx#:[id number] Oral 590 Output: Stool 1 Other: Voiding Method Bedside Commode Bedside Commode Toilet # Voids 2 3 - Exam PHYSICAL EXAM: VITAL SIGNS: As above GENERAL: Alert and oriented 3, lying on left side, eyes closed, no acute distress. HEENT: Conjunctivae normal. eyes normal. NECK: Supple, No JVD. CARDIOVASCULAR: S1, S2 regular. No murmur RESPIRATION: Unlabored ,Breath sounds diminished in the bases. ABDOMEN: Soft, nontender . No guarding. no masses palpable. +Bowel sounds. LEGS: No edema. no swelling NERVOUS SYSTEM: Cranial N 2-12 grossly normal. Skin: warm and dry, no rash. - Labs CBC & Chem 7: 01/19/23 14:00 01/19/23 14:00 Labs: Microbiology - Last 24 Hours (Table) 01/23/23 14:45 CSF Gram Stain - Preliminary Cerebral Spinal Fluid CSF Culture - Preliminary Assessment and Plan Assessment: headache 10 days over the right occipital, right frontal region, some trigeminal numbness, failed outpatient treatment,Possible right occipital neuralgia, status post right occipital nerve block. Chronic migraines CSF leak ruled out with CT myelogram Morbid obesity, BMI 32.1 Depression Former nicotine dependence Plan: Continue on current medication regime ,monitoring and symptomatic treatment. Neurology recommending epidural blood patch pain. Neurology notifying pain management services. The impression and plan of care has been dictated as directed. : I performed a history and examination of this patient, discussed the same with the dictator. I agree with the dictator's note ,documented as a scribe. Any additional findings or plans will be noted.
--- NOTE | 2023-01-25 16:09 | P.PN ---
Progress Note - Text Progress Note Date: 01/25/23 The patient was seen again today on request from neurology. The patient still complains of 8-10 headache however the pain location has changed from the right occipital area to the top of her head as she states. The patient has mild photophobia and nausea however she has not been throwing up. The patient has history of migraine headache with the last episode taking placed 5 years ago and usually it lasts for one day only. The patient has been having this headache for 2 weeks now with failure to respond to many medications . The occipital nerve block which she had yesterday helped her occipital headache however the headache now is located on top of her head as stated above. She denies any precipitating events for this headache with no recent surgeries or new medications. She has been free of other neurologic symptoms. The patient used to get Imitrex for her migraine headaches but she has not received it recently. She has side effects to Lyrica . Currently she takes Neurontin and was just started on Fioricet. At this point I will defer treatment to neurology. I do not think that the patient will benefit from any more occipital nerve blocks.
[2023-01-25] MEDS: SENNOSIDES-DOCUSATE SODIUM 1 EACH TAB PO SCH (21:02)
[2023-01-26] MEDS: BUTALB/APAP/CAFF 50-325-40MG TAB PO PRN ×4 (04:10→18:09)
[2023-01-26] MEDS: SODIUM CHLORIDE 0.9% 1,000 ML IV SCH ×2 (04:10→17:25)
[2023-01-26] MEDS: ONDANSETRON 4 MG/2 ML VIAL IVP PRN (04:18)
[2023-01-26] MEDS: methocarbamoL 500 MG TAB PO SCH (08:26)
[2023-01-26] MEDS: GABAPENTIN 400 MG CAP PO SCH (08:26)
[2023-01-26] MEDS: DULoxetine HCL 20 MG CAPSULE.DR PO SCH (08:26)
[2023-01-26] MEDS: polyethylene glycoL 3350 17 GM POWD.PACK PO SCH (08:28)
[2023-01-26 10:12] LABS: Appearance,Urine Clear (Clear); Bilirubin,Urine Negative (Negative); Blood,Urine Moderate (Negative); Color,Urine Light Yellow; Glucose,Urine (UA) Negative (Negative); Ketones,Urine Negative (Negative); Leukocyte Esterase,Urine Trace (Negative); Mucus,Urine Rare /hpf; Nitrite,Urine Negative (Negative); Protein,Urine Negative (Negative); RBC,Urine 5 /hpf (0-5); Specific Gravity,Urine 1.007 (1.001-1.035); Squamous Epithelial Cell,Urine <1 /hpf (0-4); Urobilinogen,Urine <2.0 mg/dL (<2.0); WBC,Urine 3 /hpf (0-5)
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
[2023-01-26 11:36] VITALS: BMI 32.1
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
--- NOTE | 2023-01-26 12:34 | P.PN ---
Subjective Progress Note Date: 01/26/23 Chief Complaint: Ongoing headache 10 days This a 42-year-old female with past medical history of migraines, neuropathy, former nicotine dependence, depression, postop nausea and vomiting, obesity and multiple other medical issues presented to the ER with unrelieved ongoing headache of 10 days. Denies trauma,states headache initiated last Monday upon awakening. pointing to right occipital and right frontal areas. Reports electrical stabbing sensations, worsened with sitting, standing and light. Reports accompanying nausea. Denies fever or chills States she has had migrain es for all her life and they usually subside within 1 day. Last week, followed up with her PCP, received occipital injection, Toradol, baclofen with no relief. Also reports some numbness on the right trigeminal area. CTA reported negative. Afebrile, WBC 13.9, hemoglobin 14.2, platelets 335, chemistry panel unremarkable with the exception of magnesium 1.4, hCG not detected. Denies chest pain, palpitations or shortness of breath. Maintaining O2 sats in the high 90s on room air. Neurology consult in place. 01/23/2023 continues on Dilaudid PRN, Neurontin and Robaxin . Received IV caffeine, additional IV fluids with reported minimal improvement yesterday. Denies numbness or tingling. Positive facial sensation to touch. States pain is ongoing at the "top of her neck and to the right side top of head". Neuro workup currently reporting unremarkable;MRI the brain is reported as unremar kable. MRI of the cervical spine was reported as slight scoliotic curvature with mild degenerative changes in the mid cervical spine. No abnormal enhancement is present. ESR 12 ,C-reactive protein less than 0.5. CT myelogram of the cervical thoracic lumbar, ruling out CSF leak pending. 01/24/2023 reports headache unchanged, rating it 10 out of 10. currently sitting up on bedside commode with eyes closed. Reports nausea, no emesis and states she can open her eyes, but the light is bothersome. CT myelogram reported negative for CSF leak. Neurology expressing concern for possible occipital neuralgia, pain management service consulted. 01/25/2023 evaluated by pain management services yesterday, right greater occipital nerve block. Reports some improvement in the occipital area but continues to have significant unchanged pain at the top of the head. Right bicipital tenderness to palpation-cannot lay on her back/right side. Reports that she can barely sit or stand as it intensifies the pain in addition to causing dizziness. Positive nausea, no emesis. Discussed with neurology, possible CSF leak from myelogram; recommending epidural blood patch. 01/26/2023 maintained on IV fluids. Reevaluated by pain management services yesterday, recommending deferring treatment to neurology. Reports no relief in the last 24 hours, continues to have significant headache on the top of head "feels like ice cream brain freeze with zapping spasms." Attempted fiorcet this morning without relief. Eyes remained closed during visit. Denies all pain on forehead, nose or on trigeminal nerve area. Complains of dysuria, with mild suprapubic tenderness, afebrile, UA ordered. Objective - Vital Signs Vital signs: Vital Signs Temp 98.8 F 01/26/23 07:03 Pulse 63 01/26/23 07:03 Resp 16 01/26/23 07:03 BP 117/77 01/26/23 07:03 Pulse Ox 98 01/26/23 07:03 FiO2 Intake & Output 01/25/23 01/26/23 01/26/23 18:59 06:59 18:59 Intake Total 1000 1500 Output Total 1 Balance 999 1500 Weight 77.111 kg Intake: Intake, IV Titration 1000 900 Amount Sodium Chloride 0.9% 1, 1000 900 000 ml @ 75 mls/hr IV . [id number] [facility] Rx#:[id number] Oral 600 Output: Stool 1 Other: Voiding Method Toilet Toilet Toilet # Voids 3 2 1 - Exam PHYSICAL EXAM: VITAL SIGNS: As above GENERAL: Alert and oriented 3, lying on left side, eyes closed, no acute distress. HEENT: Conjunctivae normal. eyes normal. CARDIOVASCULAR: S1, S2 regular. No murmur RESPIRATION: Unlabored ,Breath sounds diminished in the bases. ABDOMEN: Soft, nontender . No guarding. no masses palpable. +Bowel sounds. LEGS: No edema. no swelling NERVOUS SYSTEM: Cranial N 2-12 grossly normal. Skin: warm and dry, no rash. - Labs CBC & Chem 7: 01/19/23 14:00 01/19/23 14:00 Labs: Abnormal Lab Results - Last 24 Hours (Table) 04/06/23 Range/Units 10:00 Urine Blood Moderate H (Negative) Ur Leukocyte Esterase Trace H (Negative) Urine Mucus Rare H (None) /hpf Microbiology - Last 24 Hours (Table) 01/23/23 14:45 CSF Gram Stain - Preliminary Cerebral Spinal Fluid CSF Culture - Preliminary Assessment and Plan Assessment: headache 10 days over the right occipital, right frontal region, some trigeminal numbness, failed outpatient treatment,Possible occipital neuralgia, status post right occipital nerve block. Chronic migraines CSF leak ruled out with CT myelogram Morbid obesity, BMI 32.1 Depression Former nicotine dependence Plan: Continue on current medication regime ,monitoring and symptomatic treatment. Neurology reevaluated outpatient, accompanied by pain specialist, recommendations noted and appreciated;Psych consult in place. Empiric epidural blood patching if no improvement in 24 hours. I also discussed these with neurology possibly switching Neurontin to Trileptal; neurology in agreement to switch to Trileptal 300 mg twice a day. The impression and plan of care has been dictated as directed. : I performed a history and examination of this patient, discussed the same with the dictator. I agree with the dictator's note ,documented as a scribe. Any additional findings or plans will be noted.
[2023-01-26] MEDS: HEPARIN SODIUM,PORCINE/PF 5,000 UNIT/0.5 ML SYRINGE SQ SCH ×3 (13:17→23:58)
[2023-01-26] MEDS: LIDOCAINE 5% PATCH TOPICAL SCH (13:18)
[2023-01-26] MEDS: OXcarbazepine 300 MG TAB PO SCH ×2 (13:20→20:42)
[2023-01-26] MEDS: MAGNESIUM OXIDE 400 MG TAB PO SCH (13:40)
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
[2023-01-26] MEDS ORDERED: tiZANidine 4 MG TAB PO SCH ×3 (16:00→21:00)
[2023-01-26] MEDS: tiZANidine 4 MG TAB PO SCH (20:42)
[2023-01-26] MEDS: SENNOSIDES-DOCUSATE SODIUM 1 EACH TAB PO SCH (20:43)
[2023-01-26] MEDS: HYDROcodone/APAP 5-325MG 1 EACH TAB PO PRN (20:46)
[2023-01-26] MEDS ORDERED: GABAPENTIN 300 MG CAP PO SCH (21:00)
[2023-01-26] MEDS ORDERED: AMITRIPTYLINE HCL 25 MG TAB PO SCH (21:00)
[2023-01-27] MEDS: HYDROcodone/APAP 5-325MG 1 EACH TAB PO PRN (04:42)
[2023-01-27] MEDS: ONDANSETRON 4 MG/2 ML VIAL IVP PRN (04:42)
[2023-01-27] MEDS: SODIUM CHLORIDE 0.9% 1,000 ML IV SCH (04:43)
[2023-01-27] MEDS: LIDOCAINE 5% PATCH TOPICAL SCH (08:19)
[2023-01-27] MEDS: HEPARIN SODIUM,PORCINE/PF 5,000 UNIT/0.5 ML SYRINGE SQ SCH ×2 (08:20→16:43)
[2023-01-27] MEDS: MAGNESIUM OXIDE 400 MG TAB PO SCH (08:21)
[2023-01-27] MEDS: OXcarbazepine 300 MG TAB PO SCH (08:21)
[2023-01-27] MEDS: polyethylene glycoL 3350 17 GM POWD.PACK PO SCH (08:22)
[2023-01-27] MEDS: tiZANidine 4 MG TAB PO SCH (08:22)
[2023-01-27] MEDS ORDERED: DULoxetine HCL 20 MG CAPSULE.DR PO SCH (09:00)
--- NOTE | 2023-01-27 10:00 | P.DS ---
Providers Date of admission: 01/19/23 14:57 Expected date of discharge: 01/27/23 Attending physician: Fernando Fry MD Consults: 01/19/23 14:00 Consult Physician Routine Consulting Provider: Arcadio Pierce Consult Reason/Comments: status migrainosus Do you want consulting provider notified?: Yes 01/26/23 11:24 Consult Physician Urgent Consulting Provider: Reyes Gibson Consult Reason/Comments: Persistent severe intractable headache, r/o underlying psychogenic causes Do you want consulting provider notified?: Yes Primary care physician: Sarah Cowart Hospital Course: Final Diagnoses: Headache 10 days over the right occipital, right frontal region, some trigeminal numbness, failed outpatient treatment, suspect occipital neuralgia, status post right occipital nerve block. Chronic migraines CSF leak ruled out with CT myelogram Morbid obesity, BMI 32.1 Depression Former nicotine dependence Hospital course:This a 42-year-old female with past medical history of migraines, neuropathy, former nicotine dependence, depression, postop nausea and vomiting, obesity and multiple other medical issues presented to the ER with unrelieved ongoing headache of 10 days. Denies trauma,states headache initiated last Monday upon awakening. pointing to right occipital and right frontal areas. Reports electrical stabbing sensations, worsened with sitting, standing and light. Reports accompanying nausea. Denies fever or chills States she has had migraines for all her life and they usually subside within 1 day. Last week, followed up with her PCP, received occipital injection, Toradol, baclofen with no relief. Also reports some numbness on the right trigeminal area. CTA reported negative. Afebrile, WBC 13.9, hemoglobin 14.2, platelets 335, chemistry panel unremarkable with the exception of magnesium 1.4, hCG not detected. Denies chest pain, palpitations or shortness of breath. Maintaining O2 sats in the high 90s on room air. Neurology consult in place. 01/23/2023 continues on Dilaudid PRN, Neurontin and Robaxin . Received IV caffeine, additional IV fluids with reported minimal improvement yesterday. Den ies numbness or tingling. Positive facial sensation to touch. States pain is ongoing at the "top of her neck and to the right side top of head". Neuro workup currently reporting unremarkable;MRI the brain is reported as unremarkable. MRI of the cervical spine was reported as slight scoliotic curvature with mild degenerative changes in the mid cervical spine. No abnormal enhancement is present. ESR 12 ,C-reactive protein less than 0.5. CT myelogram of the cervical thoracic lumbar, ruling out CSF leak pending. 01/24/2023 reports headache unchanged, rating it 10 out of 10. currently sitting up on bedside commode with eyes closed. Reports nausea, no emesis and states she can open her eyes, but the light is bothersome. CT myelogram reported negative for CSF leak. Neurology expressing concern for possible occipital neuralgia, pain management service consulted. 01/25/2023 evaluated by pain management services yesterday, right greater occipital nerve block. Reports some improvement in the occipital area but continues to have significant unchanged pain at the top of the head. Right bicipital tenderness to palpation-cannot lay on her back/right side. Reports that she can barely sit or stand as it intensifies the pain in addition to causing dizziness. Positive nausea, no emesis. Discussed with neurology, possible CSF leak from myelogram; recommending epidural blood patch. 01/26/2023 maintained on IV fluids. Reevaluated by pain management services yesterday, recommending deferring treatment to neurology. Reports no relief in the last 24 hours, continues to have significant headache on the top of head "feels like ice cream brain freeze with zapping spasms." Attempted fiorcet this morning without relief. Eyes remained closed during visit. Denies all pain on forehead, nose or on trigeminal nerve area. Complains of dysuria, with mild suprapubic tenderness, afebrile, UA ordered. Continues on amitriptyline, Cymbalta. Neurontin discontinued with initiation of Trileptal as discussed with neurology. This morning patient is up to bathroom, ambulating slowly, pushing her IV pole. Reports she noted some dizziness after receiving the Trileptal but pain improved,7/10 top of head. Reports sporadic "brain zaps'over the right side of forehead. Eyes are more open. Denies chest pain, palpitations or shortness of breath. at bedside, updated on treat ment to date, plan of care including discharge pending neurology clearance. Patient requesting shower chair with back as well as a wheelchair to help her reach the bathroom in a timely manner. PT consulted, recommendations pending. Patient states she heart he has an appointment with Dr. Kerr, neurology. Patient will be discharged home today pending PT evaluation,final DC recommendations and clearance per neurology. The impression and plan of care has been dictated as directed. : I performed a history and examination of this patient, discussed the same with the dictator. I agree with the dictator's note ,documented as a scribe. Any additional findings or plans will be noted. Patient Condition at Discharge: Stable Plan - Discharge Summary New Discharge Prescriptions: New polyethylene glycoL 3350 [Miralax] 17 gm PO DAILY packet Sennosides-Docusate Sodium [Senokot-S] 2 each PO HS tab OXcarbazepine [Trileptal] 300 mg PO BID #60 tab Amitriptyline HCl [Elavil] 25 mg PO HS #14 tab Magnesium Oxide [Mag-Ox] 400 mg PO DAILY tab Acetaminophen Tab [Tylenol] 650 mg PO Q6HR PRN tab PRN Reason: Mild Pain Or Fever > 100.5 tiZANidine [Zanaflex] 2 mg PO BID #30 tab Continue HYDROcodone/APAP 5-325MG [[place] 5-325] 1 tab PO BID DULoxetine HCL [Cymbalta] 20 mg PO DAILY Discontinued Baclofen [Lioresal] 20 mg PO BID PRN PRN Reason: Muscle Spasm Discharge Medication List DULoxetine HCL [Cymbalta] 20 mg PO DAILY 01/19/23 [History] HYDROcodone/APAP 5-325MG [[place] 5-325] 1 tab PO BID 01/19/23 [History] Sennosides-Docusate Sodium [Senokot-S] 2 each PO HS tab 01/25/23 [Rx] polyethylene glycoL 3350 [Miralax] 17 gm PO DAILY packet 01/25/23 [Rx] Acetaminophen Tab [Tylenol] 650 mg PO Q6HR PRN tab 01/27/23 [Rx] Amitriptyline HCl [Elavil] 25 mg PO HS #14 tab 01/27/23 [Rx] Magnesium Oxide [Mag-Ox] 400 mg PO DAILY tab 01/27/23 [Rx] OXcarbazepine [Trileptal] 300 mg PO BID #60 tab 01/27/23 [Rx] tiZANidine [Zanaflex] 2 mg PO BID #30 tab 01/27/23 [Rx] Follow up Appointment(s)/Referral(s): Fernando Fry MD [STAFF PHYSICIAN] - 01/26/23 4:45 pm Wesley Kerr MD [Medical Doctor] - 1 Week Discharge/Stand Alone Forms: [facility] Instructions
[2023-01-27] MEDS: BUTALB/APAP/CAFF 50-325-40MG TAB PO PRN (11:44)
--- NOTE | 2023-01-27 14:06 | P.PN ---
Progress Note - Text Progress Note Date: 01/27/23 Patient continued to have severe headache, mainly on the right side of her cervical spine and right occipital area with radiation to the top of the head, it is increased with sitting position, improved with lying supine position, the headache did not improve after the right occipital nerve block and trigger point injection right side cervical paraspinal muscles, patient had positional component of her headache, the patient had CT myelogram few days ago, and this could be added component to her headache ( CSF leak after the Ct myelogram )as per neurology recommendation, we will proceed with the epidural blood patch
[2023-01-27] MEDS ORDERED: MIDAZOLAM 2 MG/2 ML VIAL IVP ONE (15:34)
[2023-01-27] MEDS ORDERED: fentaNYL (PF) 50 MCG/1 ML VIAL IVP ONE (15:35)
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
[2023-01-27] MEDS ORDERED: SODIUM CHLORIDE 0.9% 1,000 ML IV ONE (16:10)
[2023-01-27 16:25] VITALS: TEMP 97
[2023-01-27 16:41] VITALS: BP 114/65; PULSE 71
--- NOTE | 2023-01-27 17:18 | P.PCN ---
Date of Procedure: 01/27/23 Procedure(s) Performed: Procedure= lumbar epidural blood patch. Preoperative diagnosis= postdural puncture headache. Postoperative diagnoses= post dural puncture headache. Indication for the procedure= patient complaining of severe positional headache , headache persists in spite of conservative treatment, there is no focal neurological deficit, no fever, no neck stiffness, headache worse with sitting position, and improved with lying supine, for this reason patient is a good candidate for epidural blood patch. anesthesia= IV sedation with Versed 2mg and fentanyl 100 and local infiltration with lidocaine 1% 3 mL. Complications= none. Description of the procedure= patient identified risks and benefits of the procedure explained to the patient and patient agreed with proceeding, vital signs monitored during the procedure and IV sedation given to decrease anxiety, Back lumbar area prepped with chlorhexidine 3 times, then drape applied the local infiltration of the skin and subcutaneous tissue with lidocaine 1% 3 mL at L5-S1 interlaminar space then 18-gauge Tuohy needle advanced slowly at L5-S1 interlaminar space, There was positive loss of resistance to normal saline, no heme no paresthesia no cerebrospinal fluid, then after that he 15 ML of the blood taken from the patient under strict sterile technique, and after the right antecubital area prepped with a chlorhexidine 3 times using 20-gauge Angiocath, and under sterile technique the 15 ML of the block taken from the patient injected in the epidural space after negative aspiration for heme or CSF and there was no paresthesia then the needle removed intact the skin cleaned and the , bandage applied and patient discharged home in stable condition after discharge criteria met.
== END 2023-01-27 18:57 | disposition home or self-care (01) | DRG 552 ==
LOC: EC 12:45 → 5NMEDONC 14:57
PROVIDERS: ADMIT Family Medicine; ATTEND Family Medicine
DX: M54.81 Occipital neuralgia (principal); F33.1 Major depressive disorder, recurrent, moderate; G97.1 Other reaction to spinal and lumbar puncture; G43.901 Migraine, unspecified, not intractable, with status migrainosus; F41.9 Anxiety disorder, unspecified; Y84.4 Aspiration of fluid as the cause of abnormal reaction of the patient, or of later complication, without mention of misadventure at the time of the procedure; Z68.32 Body mass index [BMI] 32.0-32.9, adult; Z87.891 Personal history of nicotine dependence; Z91.81 History of falling; E66.01 Morbid (severe) obesity due to excess calories; Z28.310 Unvaccinated for COVID-19; Z28.21 Immunization not carried out because of patient refusal; R45.1 Restlessness and agitation; M79.18 Myalgia, other site; Z79.899 Other long term (current) drug therapy; Z79.891 Long term (current) use of opiate analgesic
CPT/HCPCS: 20553; 36415; 62273; 62305; 64405; 70496; 70498; 70553; 72126; 72129; 72132; 72156; 80048; 81001; 82040; 82042; 82784; 82945; 83735; 83916; 84157; 84703; 85025; 85652; 85730; 86140; 87070; 87205; 87252; 87496; 87498; 87529; 87798; 89050; 96361; 96365; 96366; 96367; 96375; 96376; 99285

== ENCOUNTER → 2023-02-22 | Outpatient (CLI) | payer MEDICARE ==
[2023-02-22 15:44] LABS: African American GFR (CKD) 106.9 (60.0-200.0); Albumin 4.2 g/dL (3.8-4.9); Albumin/Globulin Ratio 1.4 (1.60-3.17); Anion Gap 9.8 mmol/L (10.00-18.00); BUN/Creat Ratio 16.88 Ratio (12.00-20.00); Blood Urea Nitrogen 13.5 mg/dL (9.0-27.0); Calcium 9.2 mg/dL (8.7-10.3); Carbon Dioxide 25.2 mmol/L (20.0-27.5); Non-African American GFR(CKD) 92.2 (60.0-200.0); Potassium 4.2 mmol/L (3.5-5.5); T4, Free (Free Thyroxine) 0.8 ng/dL (0.800-1.800); Total Bilirubin 0.2 mg/dL (0.30-1.20); Total Protein 7.2 g/dL (6.2-8.2)
== END | disposition home or self-care (01) ==
LOC: LABWHC1 11:26
PROVIDERS: ATTEND Physician Assistant
DX: Z51.81 Encounter for therapeutic drug level monitoring (principal); R79.89 Other specified abnormal findings of blood chemistry
CPT/HCPCS: 36415; 80053; 84439; 84443; 84481

== ENCOUNTER → 2023-11-20 | Day surgery (SDC) | payer MEDICARE ==
[~2023-11-20] MED LIST changes: +BENZOCAINE SPRAY 1 CAN MUCOUS MEM ONE; -DEXAMETHASONE SOD PHOSPHATE 10 MG/ML 1 ML VIAL IV ONE; -HEPARIN SODIUM,PORCINE 5,000 UNIT/ML 1 ML VIAL SQ ONE; +IV FLUID CONTINUATION 1,000 ML IV ONE; -LACTATED RINGERS 1,000 ML IV SCH; -MIDAZOLAM 2 MG/2 ML VIAL IV PRN; +MIDAZOLAM 2 MG/2 ML VIAL IVP ONE; -ONDANSETRON 4 MG/2 ML VIAL IVP ONE; -SCOPOLAMINE 1.5MG/72HR PATCH TRANSDERM ONE; -ceFAZolin 2 GM in SODIUM CHLORIDE 0.9% 100 ML IVPB ONE; +fentaNYL (PF) 50 MCG/ML 2 ML AMP IVP ONE; +fentaNYL (PF) 50 MCG/ML 2 ML AMP ONE
--- NOTE | 2023-11-20 10:54 | P.TEE ---
Date of Procedure: 11/20/23 Description of Procedure(s): Procedure performed: 1. Transesophageal Echocardiogram with color flow doppler, pulsed wave doppler and continuous wave doppler 2. Moderate conscious sedation. Sedation time 10 mins. 3. Bubble Study Indications: CVA Consent: I have discussed the risks, benefits and alternative therapies for the above-mentioned procedure. The patient has indicated understanding and acceptance of the risks of the procedure. Signed consent was obtained and was placed in the paper chart. Procedural Steps: Timeout was performed in usual fashion. Patient's heart rate, blood pressure, oxygen saturation and ECG were monitored. Benzocaine was sprayed liberally in the back of the throat. Bite block was placed between the jaw. 3 mg of Versed and 50 mcg of Fentanyl were administered intravenously. After achieving appropriate moderate conscious sedation, MAXWELL probe was advanced without difficulty and without any immediate complications to the esophagus. MAXWELL study was performed with color flow doppler, pulsed wave doppler and continuous wave doppler. Agitated saline bubbles were injected to assess for any intra- atrial shunt. The probe was then removed. Patient tolerated the procedure well. Patient was transferred to the post procedure area in stable and satisfactory condition. Throughout the procedure patient's heart rate, blood pressure, oxygen saturation and ECG were monitored. Total sedation time 10 mins. Complications: none FINDINGS Left Atrium: Normal Left atrial size. No evidence of mass or thrombus seen Left Atrial Appendage: No evidence of thrombus or mass seen in KAYLEN Inter atrial septum: Evidence of patent foramen ovale with [id number] shunting no right to left crossover on bubble study appreciated Left Ventricle: Normal global LV size and systolic function Right Atrium: Normal overall RV size Right Ventricle: Normal global RV size and systolic function Aortic Valve: Structurally normal Trileaflet, no significant calcification. No significant stenosis or regurgitation on color doppler assessment. Mitral Valve: Trace MR Pulmonic Valve: Significant regurgitation or stenosis Tricuspid Valve: Mild TR. Ascending aorta, Aortic root and Aortic arch: Mild intimal thickening. Normal size ascending aorta Descending aorta: Mild intimal thickening. No evidence of large atheroma or bulky calcification CONCLUSION: Evidence of PFO with [id number]-[id number] shunting appreciated. No right to left intracardiac shunting on bubble study No significant chamber size abnormality No bulk ascending aortic calcification. Normal size ascending aorta. Thank you for allowing cardiology team to participate in this patient's care. Please follow-up with me on outpatient basis in the next [address] Carrington Please cc this report to Dr. Wesley Kerr Md
[2023-11-20 17:03] VITALS: BP 123/75; PULSE 72; RESP 16
== END ==
LOC: CATHCVL 08:59
PROVIDERS: ATTEND Student in an Organized Health Care Education/Training Program
DX: Q21.12 Patent foramen ovale (principal); I77.810 Thoracic aortic ectasia; I63.9 Cerebral infarction, unspecified; I62.9 Nontraumatic intracranial hemorrhage, unspecified; G43.909 Migraine, unspecified, not intractable, without status migrainosus; Z79.899 Other long term (current) drug therapy; Z79.82 Long term (current) use of aspirin; Z88.5 Allergy status to narcotic agent
CPT/HCPCS: 93312; 93320; 93325; 99152; J2250; J3010

== ENCOUNTER 2024-01-24 07:28 | Day surgery (SDC) | payer MEDICARE ==
[~2024-01-24 07:28] MED LIST changes: +ALPRAZolam 0.25 MG TAB PO PRN; +ALPRAZolam 0.5 MG TAB PO PRN; -BENZOCAINE SPRAY 1 CAN MUCOUS MEM ONE; -IV FLUID CONTINUATION 1,000 ML IV ONE; -MIDAZOLAM 2 MG/2 ML VIAL IVP ONE; +NITROGLYCERIN SL TABS 0.4 MG TAB SUBLINGUAL PRN; -fentaNYL (PF) 50 MCG/ML 2 ML AMP IVP ONE; -fentaNYL (PF) 50 MCG/ML 2 ML AMP ONE
[2024-01-24] MEDS: SODIUM CHLORIDE 0.9% 1,000 ML IV ONE (07:46)
[2024-01-24] MEDS ORDERED: HEPARIN SODIUM 1,000 UN/ML (10ML VL) ONE (09:03)
[2024-01-24] MEDS: MIDAZOLAM 2 MG/2 ML VIAL IVP ONE (09:11)
[2024-01-24] MEDS ORDERED: CLOPIDOGREL 75 MG TAB ONE (09:12)
[2024-01-24] MEDS: LIDOCAINE 1% INJ 10MG/ML (20 ML MDV) SQ ONE (09:12)
[2024-01-24] MEDS: CLOPIDOGREL 75 MG TAB PO ONE ×2 (09:12→09:21)
[2024-01-24] MEDS: HEPARIN SODIUM 1,000 UN/ML (10ML VL) IVP ONE (09:19)
--- NOTE | 2024-01-24 10:04 | P.PCN ---
Date of Procedure: 01/24/24 Operative Findings: PERCUTANEOUS CLOSURE OF FENESTRATED INTERATRIAL SEPTUM PERFORMING PHYSICIAN: Refugio Devlin MD, VI PROCEDURE PERFORMED: 1. Successful percutaneous closure of PFO using 30 mm CARDIOFORM septal occluder with an excellent result and no residual shunt 2. Intracardiac echocardiogram imaging. 3. Ultrasound-guided access of bilateral common femoral veins INDICATION: This is a 43-year-old female patient who had a stroke recently and underwent further investigation including transesophageal echocardiogram and that revealed patent wise ovale with right to left shunt and aneurysmal interatrial septum. In the light of that she was brought today to undergo PFO closure. APPROACH: Right common femoral vein 2 COMPLICATION: None. LEVEL OF SEDATION: Moderate with sedation length of 31 minutes. PROCEDURE DESCRIPTION: After obtaining informed consent, the patient was brought to the cardiac cathode washer. The right common femoral vein was cannulated x2 using micropuncture technique under ultrasound guidance, the micropuncture wire passed easily, then I placed two 8-[place] sheath in the right groin. Subsequently I cannulated the left common femoral vein with the same technique and I placed an 8-[place] sheath there as well. At that point, anticoagulation was initiated using heparin and the patient was given a bolus of 5,000 units of heparin IV with continuous ACT monitoring throughout the procedure. After that, the intracardiac echocardiogram probe was advanced through one of the venous sheath all the way to the right atrium where we did interrogate the interatrial septum and identified the patent foramen ovale which was measured about 30 mm. Subsequently, I did cross the defect using 0.035 J-Kiersten wire with the backup support of multipurpose catheter. The wire was advanced all the way to the left lower pulmonary vein. Subsequently after the decision was made to pursue using a 30 mm device the device was prepped under saline and was folded inside the catheter. Subsequently I did exchange my 8 [place] sheath into a 12 [place] sheath using 035 wire. Subsequently the catheter was advanced over the [address] to the left atrium under fluoroscopy guidance. The left atrial occluder was deployed first then the catheter was pulled toward the interatrial septum were subsequently the right atrial occluder pulled after that. Interrogation using intracardiac imaging was performed and showed no residual shunt with good form. At that point we decided to release the device. Bubble study was performed as well and showed no crossing. The procedure was completed with no complication. Subsequently both right common femoral vein hemostasis was performed using the Vascade. The procedure was completed without any complication. POSTPROCEDURE MANAGEMENT: 1. Dual anti-platelet therapy using aspirin and Plavix for 4 weeks subsequently the decision toward single antiplatelet therapy to be made.
[2024-01-24] MEDS: SODIUM CHLORIDE 0.9% 1,000 ML IV SCH (15:27)
[2024-01-24] MEDS: SODIUM CHLORIDE 0.9% 1,000 ML in EMPTY BAG 1 BAG IV ONE (15:27)
[2024-01-24] MEDS: ASPIRIN 325 MG TAB PO STA (15:27)
[2024-01-24] MEDS: HYDROcodone/APAP 5-325MG 1 EACH TAB PO SCH (18:29)
[2024-01-24] MEDS: tiZANidine 4 MG TAB PO SCH (20:01)
[2024-01-24] MEDS: ATORVASTATIN 40 MG TAB PO SCH (20:02)
[2024-01-24] MEDS: OXcarbazepine 300 MG TAB PO SCH (20:18)
--- NOTE | 2024-01-25 08:51 | XR ---
EXAMINATION TYPE: XR chest 2V DATE OF EXAM: 01/25/2024 6:42 AM CLINICAL INDICATION:Female, 43 years old with history of ASD/PFO placement; [facility] COMPARISON: None TECHNIQUE: XR chest 2V Frontal and lateral views of the chest. FINDINGS: Lungs/Pleura: There is no evidence of pleural effusion, focal consolidation, or pneumothorax. Pulmonary vascularity: Unremarkable. Heart/mediastinum: Cardiomediastinal silhouette is unremarkable. Atrial septal defect occlusion devic e present. Musculoskeletal: No acute osseous pathology. Other findings: None IMPRESSION: No acute cardiopulmonary disease/process.
[2024-01-25] MEDS: ASPIRIN 325 MG TAB PO SCH (09:30)
[2024-01-25] MEDS: DULoxetine HCL 20 MG CAPSULE.DR PO SCH (09:30)
[2024-01-25] MEDS: CLOPIDOGREL 75 MG TAB PO SCH (09:30)
--- NOTE | 2024-01-25 10:10 | US ---
EXAMINATION TYPE: US lower ext pseudo artery RT DATE OF EXAM: 01/25/2024 COMPARISON: NONE CLINICAL INDICATION: Female, 43 years old with history of pain; heart procedure done through right gr oin yesterday EXAM PERFORMED: Grayscale and color Doppler duplex imaging performed of the groin, post cardiac dee ter to assess for pseudoaneurysm. SIDE PERFORMED: Right Color and Waveform Doppler performed to assess for the presence of pseudoaneurysm; Is there ultrasound evidence of a pseudoaneurysm: no Is there evidence of AV shunting: no Is there a fluid collection present: no 2 normal appearing nodes seen superior to puncture site IMPRESSION: No evidence for pseudoaneurysm. There are 2 normal-appearing lymph nodes present.
--- NOTE | 2024-01-25 12:28 | CA ---
Transthoracic Echo Report Name: Sarah Beth Salazar Age: 43 Gender: F : 1980 Exam Date: 01/25/2024 08:16 Exam Location: [facility] Ht (in): 61 Wt (lb): 169 Ordering Physician: Refugio Devlin MD ([id number]) Attending/Referring Phys: Client Support Manager Josselin Cole RDCS Procedure CPT: Indications: Post ASD/PFO Insertion Cardiac Hx: Technical Quality: Contrast 1: Definity Total Dose (mL): 3 Contrast 2: Total Dose (mL): MEASUREMENTS (Male / Female) Normal Values 2D ECHO LV Diastolic Diameter PLAX 3.8 cm 4.2 - 5.9 / 3.9 - 5.3 cm LV Systolic Diameter PLAX 2.6 cm IVS Diastolic Thickness 0.9 cm 0.6 - 1.0 / 0.6 - 0.9 cm LVPW Diastolic Thickness 1.1 cm 0.6 - 1.0 / 0.6 - 0.9 cm LV Relative Wall Thickness 0.5 LVOT Diameter 1.9 cm Aortic Root Diameter 2.4 cm LA Systolic Diameter LX 3.5 cm 3.0 - 4.0 / 2.7 - 3.8 cm DOPPLER AV Peak Velocity 108.5 cm/s AV Peak Gradient 4.7 mmHg AV Mean Velocity 74.3 cm/s AV Mean Gradient 2.5 mmHg AV Velocity Time Integral 18.2 cm LVOT Peak Velocity 93.9 cm/s LVOT Peak Gradient 3.5 mmHg LVOT Velocity Time Integral 15.7 cm LVOT Stroke Volume 45.3 cm??? LVOT Stroke Volume Index 25.8 ml/m??? LVOT Cardiac Index 2058.9 cm???/min???m??? AV Area Cont Eq vti 2.5 cm??? AV Area Cont Eq pk 2.5 cm??? MV Area PHT 2.5 cm??? Mitral E Point Velocity 72.3 cm/s Mitral A Point Velocity 99.3 cm/s Mitral E to A Ratio 0.7 MV Deceleration Time 309.5 ms PV Peak Velocity 68.4 cm/s PV Peak Gradient 1.9 mmHg FINDINGS Left Ventricle Left ventricular ejection fraction is estimated at 55-60 %. Normal left ventricular systolic function with no obvious regional wall motion abnormalities. Right Ventricle Normal right ventricular size and function. Right Atrium Normal right atrial size. Left Atrium Normal left atrial size. ASD appears to be in good function. Mitral Valve No mitral stenosis, regurgitation or prolapse. Aortic Valve No aortic valve stenosis or regurgitation. Tricuspid Valve No tricuspid regurgitation. Pulmonic Valve No pulmonic regurgitation. Pericardium No pericardial effusion. Aorta Normal size aortic root and proximal ascending aorta. CONCLUSIONS Left ventricular EF 55-60% ASD closure device in appropriate position without leak No mitral regurgitation No tricuspid regurgitation No pericardial effusion Previewed by: Dr. Abdoul Richards DO (Electronically Signed) Final Date: 25 January 2024 12:27
[2024-01-25] MEDS: ONDANSETRON 4 MG/2 ML VIAL IVP PRN (12:42)
[2024-01-25 16:41] LABS: Basophils # (A) 0.1 k/uL (0-0.2); Basophils % (A) 1 %; Eosinophils # (A) 0.2 k/uL (0-0.7); Eosinophils % (A) 2 %; HCT 44.4 % (34.0-46.0); HGB 15.4 gm/dL (11.4-16.0); Lymphocytes # (A) 3.1 k/uL (1.0-4.8); Lymphocytes % (A) 28 %; MCH 32.7 pg (25.0-35.0); MCHC 34.7 g/dL (31.0-37.0); MCV 94.2 fL (80.0-100.0); Mean Platelet Volume 7.8; Monocytes # (A) 0.4 k/uL (0-1.0); Monocytes % (A) 4 %; Neutrophils # (A) 7.1 k/uL (1.3-7.7); Neutrophils % (A) 64 %; Platelet Count 359 k/uL (150-450); RBC 4.72 m/uL (3.80-5.40); RDW 12.7 % (11.5-15.5); WBC 11.1 k/uL (3.8-10.6)
[2024-01-25 16:50] LABS: African American GFR (CKD) >90 (>60 ml/min/1.73 sqM); Anion Gap 8 mmol/L; Blood Urea Nitrogen 11 mg/dL (7-17); Calcium 9.2 mg/dL (8.4-10.2); Carbon Dioxide 22 mmol/L (22-30); Chloride 107 mmol/L (98-107); Glucose 95 mg/dL (74-99); Non-African American GFR(CKD) >90 (>60 ml/min/1.73 sqM); Sodium 137 mmol/L (137-145)
[2024-01-25] MEDS: HYDROmorphone 0.5 MG/0.5 ML SYRINGE IVP PRN (17:24)
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
--- NOTE | 2024-01-26 07:51 | P.DS ---
Providers Attending physician: Refugio Devlin Primary care physician: Day Kimball Hospital Course: The patient is a pleasant 43-year-old female patient who suffered recently from stroke and was found to have patent foramen ovale. She underwent successful percutaneous closure of patent foramen ovale using 30 mm Parish device with an excellent results with an echocardiogram subsequently showing proper position of the device with no evidence of shunt no and no evidence of pericardial effusion as well. She was seen and evaluated this morning. She is completely asymptomatic. The right groin discomfort has resolved completely. Echo was reviewed. Vitals are stable. The examination is unremarkable. The duplex study showed no evidence of any pseudoaneurysm. The patient is going to be discharged home on dual antiplatelet therapy I would suggest for at least 4 weeks and subsequently she can be on single antiplatelet therapy only. The patient is going to be followed by Dr. Carrington in the office Plan - Discharge Summary Discharge Rx Participant: No New Discharge Prescriptions: New Clopidogrel [Plavix] 75 mg PO DAILY #90 tab Continue HYDROcodone/APAP 5-325MG [Humphrey 5-325] 1 tab PO BID DULoxetine HCL [Cymbalta] 20 mg PO DAILY Atorvastatin [Lipitor] 40 mg PO HS Aspirin [Athena Aspirin EC] 81 mg PO DAILY OXcarbazepine [Trileptal] 300 mg PO BID tiZANidine [Zanaflex] 2 mg PO HS Discharge Medication List DULoxetine HCL [Cymbalta] 20 mg PO DAILY 01/19/23 [History] HYDROcodone/APAP 5-325MG [Humphrey 5-325] 1 tab PO BID 01/19/23 [History] Aspirin [Athena Aspirin EC] 81 mg PO DAILY 11/14/23 [History] Atorvastatin [Lipitor] 40 mg PO HS 11/14/23 [History] OXcarbazepine [Trileptal] 300 mg PO BID 01/18/24 [History] tiZANidine [Zanaflex] 2 mg PO HS 01/18/24 [History] Clopidogrel [Plavix] 75 mg PO DAILY #90 tab 01/26/24 [Rx] Follow up Appointment(s)/Referral(s): Stef Carrington MD [Medical Doctor] - 1 Week
[2024-01-26 08:37] VITALS: BP 121/79; PULSE 86; RESP 16; TEMP 98.7
== END 2024-01-26 10:29 | disposition home or self-care (01) ==
LOC: CATHCVL 07:28 → 3SCARD 09:42 → CATHCVL 01-26 10:29
PROVIDERS: ATTEND Internal Medicine Interventional Cardiology
DX: Q21.12 Patent foramen ovale (principal); Z79.02 Long term (current) use of antithrombotics/antiplatelets; Z79.82 Long term (current) use of aspirin; Z86.73 Personal history of transient ischemic attack (TIA), and cerebral infarction without residual deficits; Z87.74 Personal history of (corrected) congenital malformations of heart and circulatory system; Z79.899 Other long term (current) drug therapy
CPT/HCPCS: 93580; 93662; 76937; 86900; 86901; 80048; 85025; 86850; 81025; 71046; 93975; 93926; C8929; C1817; J2250; J0690; J2405; J2001; Q9957; J1644; J1170; 93306

== ENCOUNTER → 2024-09-06 | Outpatient (CLI) | payer MEDICARE ==
[~2024-09-06] MED LIST changes: -ALPRAZolam 0.25 MG TAB PO PRN; -ALPRAZolam 0.5 MG TAB PO PRN; -NITROGLYCERIN SL TABS 0.4 MG TAB SUBLINGUAL PRN; +REGADENOSON 0.4 MG/5 ML SYRINGE IV PRN
--- NOTE | 2024-09-06 12:31 | CA ---
Lexiscan Nuclear Stress Test Report Name: Sarah Beth Salazar Exam Date: 09/06/2024 10:08 Exam Location: [facility] Ht (in): 61 Wt (lb): 171 BSA: 1.77 Ordering Phys: Dori Fry DO Referring Phys: Regina Bain PAC Technologist: EVGENY Age: 43 Gender: F : 1980 Procedure CPT: Indications: I20.9 ANGINA PECTORIS, UNSPECIFIED R55 SYNCOPE AND ICD-10 Codes: Patient History: Chest pain, palpitations and hypertension Medications: Meds past 24 hrs: Pretest Chest Pain: STRESS TEST Lexiscan Protocol Exercise Duration (min:sec): 02:[address] Depressions (mm): Angina Score: Salazar Score: Resting HR (bpm): 77 Peak HR (bpm): 122 Resting BP (mmHg): 120 / 84 Peak BP (mmHg): 150 / 91 MPHR: 179 Target HR: 152 % MPHR: 68 METS: 1.0 Total Dose: Peak Dose: Atropine: Double Product: 61958 BP Response: Stress Termination: Infusion complete Stress Symptoms: Nausea that resolved quickly Stress Summary: ECG ANALYSIS Resting ECG: Stress ECG: CONCLUSIONS Nondiagnostic stress test Dr. Refugio Devlin MD (Electronically Signed) Final Date: 06 September 2024 12:30
--- NOTE | 2024-09-06 16:24 | NM ---
EXAMINATION TYPE: NM stress lexiscan cardiolite DATE OF EXAM: 09/06/2024 COMPARISON: NONE CLINICAL INDICATION: Female, 43 years old with history of I20.9 ANGINA PECTORIS, UNSPECIFIED R55 SYNC OPE AND; history of hypertension and hypercholesterolemia. TECHNIQUE: After the intravenous administration of 8 mCi Tc 99m Sestamibi - Cardiolite resting SPECT images acquired 55 minutes post injection. The patient received 0.4mg Lexiscan, 24.6 mCi Tc 99m Sestamibi - Stress images obtained [address] injection FINDINGS: Review of stress and rest SPECT images demonstrates no distinct perfusion abnormality. Gated analysi s shows normal wall motion with an estimated left ventricular ejection fraction of 65 %. IMPRESSION: No scintigraphic evidence for reversible ischemia. [facility], , 09/06/2024 4:22 PM
== END | disposition home or self-care (01) ==
LOC: RADNMMAIN 08:33
PROVIDERS: ATTEND Family Medicine
DX: I20.9 Angina pectoris, unspecified (principal); R55 Syncope and collapse; Z86.79 Personal history of other diseases of the circulatory system
CPT/HCPCS: 93017; 78452; A9500; J2785